=== PATIENT | male | born 1955 | race Caucasian/White ===

== ENCOUNTER 2016-09-07 10:29 | Observation (INO) | payer MEDICARE, OTHER ==
[2016-09-07] MEDS ORDERED: IPRATROPIUM 0.5 MG/2.5 ML NEBU INHALATION STA (10:38)
[2016-09-07] MEDS ORDERED: methylPREDNISolone SOD SUCCI 125 MG/2 ML VIAL IV STA (10:38)
[2016-09-07] MEDS ORDERED: SODIUM CHLORIDE 0.9% 1,000 ML IV STA ×2 (10:38)
[2016-09-07] MEDS ORDERED: ALBUTEROL NEBULIZED 2.5 MG/3 ML INHALATION STA (10:38)
--- NOTE | 2016-09-07 11:04 | ED ---
General Adult HPI - General Chief complaint: Shortness of Breath Stated complaint: TUCKER Time Seen by Provider: 09/07/16 10:32 Source: EMS, RN notes reviewed, old records reviewed Mode of arrival: EMS Limitations: no limitations - History of Present Illness Initial comments: This is a 61 although the ER for evaluation shortness of breath, severe COPD and shortness of breath history of COPD. Patient is no significant recent hospitalizations within the last year. No recent travel history no sick contacts, patient has dementia and is at home with no help. Patient denies fevers but does not feeling well. He has had increasing cough and congestion. Increased sputum production and increasing shortness of breath with exertion. No help in factors at home - Related Data Home Medications Medication Instructions Recorded Confirmed Albuterol Sulfate [Proair Hfa] 1 - 2 puff PO RT-QID PRN 08/18/14 11/03/15 Previous Rx's Medication Instructions Recorded Aspirin EC [Ecotrin] 325 mg PO DAILY tablet. 11/05/15 Carvedilol [Coreg] 6.25 mg PO BID-W/MEALS tab 11/05/15 Losartan [Cozaar] 12.5 mg PO DAILY tab 11/05/15 methylPREDNISolone Dose Pack 4 mg PO DIRECTED #21 package 11/05/15 [Medrol Dose Pack] Allergies Allergy/AdvReac Type Severity Reaction Status Date / Time No Known Allergies Allergy Verified 11/03/15 11:38 Review of Systems ROS Statement: Those systems with pertinent positive or pertinent negative responses have been documented in the HPI. ROS Other: All systems not noted in ROS Statement are negative. Past Medical History Past Medical History: Cancer, COPD, Hypertension, Liver Disease, Myocardial Infarction ([place]), Pneumonia Additional Past Medical History / Comment(s): EMPHYSEMA, BLOOD CLOT in hearth , HYDROCELE Last Myocardial Infarction Date:: UNK History of Any Multi-Drug Resistant Organisms: None Reported Past Surgical History: Adenoidectomy, Heart Catheterization, Hernia Repair, Orthopedic Surgery, Tonsillectomy Additional Past Surgical History / Comment(s): RT INGUINAL HERNIA, CHILD HAD RUPTURED TESTICAL D/T INJURY, LT BROKEN CLAVICAL HAS MEATL IN PLACE,lum Past Anesthesia/Blood Transfusion Reactions: No Reported Reaction Past Psychological History: Anxiety, Depression Additional Psychological History / Comment(s): pt attempted suicide years ago, scare on the left wirst from it. pt state " I have know thoughts of harming myself now. I want to be around to see my grandaughter grow up". Smoking Status: Current every day smoker Past Alcohol Use History: None Reported Additional Past Alcohol Use History / Comment(s): STARTED SMOKING AT AGE 6, SMOKED 1 CARTON IN WEEKS BUT CUT DOWN TO 1 PPD.USED TO BE A HEVY DRINKER, QUIT MORE THAN 10 YEARS AGO. Past Drug Use History: Cocaine Additional Drug Use History / Comment(s): QUIT COCAINE LONG TIME AGO - Past Family History Father Family Medical History: Unable to Obtain Additional Family Medical History / Comment(s): had heart issuse Mother Family Medical History: Cancer Additional Family Medical History / Comment(s): breast CA General Exam Limitations: no limitations General appearance: alert, anxious, in distress, cachectic Head exam: Present: atraumatic, normocephalic, normal inspection Eye exam: Present: normal appearance, PERRL, EOMI. Absent: scleral icterus, conjunctival injection, periorbital swelling ENT exam: Present: mucous membranes dry Neck exam: Present: normal inspection. Absent: tenderness, meningismus, lymphadenopathy Respiratory exam: Present: normal lung sounds bilaterally, wheezes, accessory muscle use. Absent: respiratory distress, rales, rhonchi, stridor Cardiovascular Exam: Present: regular rate, normal rhythm, normal heart sounds. Absent: systolic murmur, diastolic murmur, rubs, gallop, clicks GI/Abdominal exam: Present: soft, normal bowel sounds. Absent: distended, tenderness, guarding, rebound, rigid Extremities exam: Present: normal inspection, full ROM, normal capillary refill. Absent: tenderness, pedal edema, joint swelling, calf tenderness Back exam: Present: normal inspection Neurological exam: Present: alert, oriented X3, CN II-XII intact Psychiatric exam: Present: normal affect, normal mood Skin exam: Present: warm, dry, intact, normal color. Absent: rash Course Vital Signs 09/07/16 09/07/16 09/07/16 10:40 10:46 10:59 Temperature 97.6 F Pulse Rate 71 77 Respiratory 18 18 Rate Blood Pressure 194/91 O2 Sat by Pulse 98 Oximetry 09/07/16 09/07/16 11:25 11:31 Temperature Pulse Rate 85 62 Respiratory 18 Rate Blood Pressure 134/60 O2 Sat by Pulse 97 Oximetry - Reevaluation(s) Reevaluation #1: 09/07/16 11:03 Patient having minimal improvement after breathing treatment, second breathing treatment was given an patient does feel better but still with significant shortness of breath EKG Findings - EKG Comments: EKG Findings:: EKG shows normal sinus at a rate of 69, NE 120, QRS 74, QTC 420` Medical Decision Making - Medical Decision Making 61 male to the ER reevaluation of COPD exacerbation, severe shortness of breath with exertion. Patient will be admitted for continued breathing treatments, steroids and IV resuscitation - Lab Data Result diagrams: 09/07/16 10:43 09/07/16 10:43 Lab Results 09/07/16 09/07/16 09/07/16 Range/Units 10:43 10:43 10:43 WBC 9.8 (3.8-10.6) k/uL RBC 4.89 (4.30-5.90) m/uL Hgb 15.6 (13.0-17.5) gm/dL Hct 46.0 (39.0-53.0) % MCV 94.0 (80.0-100.0) fL MCH 31.8 (25.0-35.0) pg MCHC 33.9 (31.0-37.0) g/dL RDW 12.8 (11.5-15.5) % Plt Count 221 (150-450) k/uL Neutrophils % 75 % Lymphocytes % 13 % Monocytes % 7 % Eosinophils % 3 % Basophils % 1 % Neutrophils # 7.4 (1.3-7.7) k/uL Lymphocytes # 1.3 (1.0-4.8) k/uL Monocytes # 0.7 (0-1.0) k/uL Eosinophils # 0.3 (0-0.7) k/uL Basophils # 0.1 (0-0.2) k/uL PT 10.6 (9.0-12.0) sec INR 1.1 (<1.1) APTT 25.1 (22.0-30.0) sec Sodium 141 (137-145) mmol/L Potassium 4.7 (3.5-5.1) mmol/L Chloride 105 (98-107) mmol/L Carbon Dioxide 26 (22-30) mmol/L Anion Gap 10 mmol/L BUN 19 (9-20) mg/dL Creatinine 0.71 (0.66-1.25) mg/dL Est GFR (MDRD) Af Amer >60 (>60 ml/min/1.73 sqM) Est GFR (MDRD) Non-Af >60 (>60 ml/min/1.73 sqM) Glucose 86 (74-99) mg/dL Calcium 9.3 (8.4-10.2) mg/dL Magnesium 1.9 (1.6-2.3) mg/dL Total Bilirubin 1.4 H (0.2-1.3) mg/dL AST 25 (17-59) U/L ALT 32 (21-72) U/L Alkaline Phosphatase 112 (38-126) U/L Total Protein 7.2 (6.3-8.2) g/dL Albumin 4.1 (3.5-5.0) g/dL - Radiology Data Radiology results: report reviewed (Chest x-ray negative for acute disease), image reviewed Disposition Clinical Impression: Acute exacerbation of chronic obstructive airways disease, Bronchitis, COPD exacerbation Disposition: ADMITTED IP TO THIS HOSP Condition: Fair Referrals: Skyler Evans DO [Primary Care Provider] - 1-2 days
[2016-09-07 11:06] LABS: Basophils # (A) 0.1 k/uL (0-0.2); Basophils % (A) 1 %; CH 31.6; CHCM 33.8; Eosinophils # (A) 0.3 k/uL (0-0.7); Eosinophils % (A) 3 %; HDW 2.45; HGB 15.6 gm/dL (13.0-17.5); Luc # (Auto) 0.15; Luc % (Auto) 2; Lymphocytes # (A) 1.3 k/uL (1.0-4.8); Lymphocytes % (A) 13 %; MCH 31.8 pg (25.0-35.0); MCHC 33.9 g/dL (31.0-37.0); Mean Platelet Volume 8.5; Monocytes # (A) 0.7 k/uL (0-1.0); Monocytes % (A) 7 %; Neutrophils # (A) 7.4 k/uL (1.3-7.7); Neutrophils % (A) 75 %; RBC 4.89 m/uL (4.30-5.90); RDW 12.8 % (11.5-15.5); WBC 9.8 k/uL (3.8-10.6); WBC (Perox) 9.78
[2016-09-07 11:17] LABS: INR 1.1 (<1.1); Partial Thromboplastin Time 25.1 sec (22.0-30.0); Prothrombin Time 10.6 sec (9.0-12.0)
[2016-09-07 11:22] LABS: ALT 32 U/L (21-72); AST 25 U/L (17-59); Alkaline Phosphatase 112 U/L (38-126); Anion Gap 10 mmol/L; Blood Urea Nitrogen 19 mg/dL (9-20); Calcium 9.3 mg/dL (8.4-10.2); Carbon Dioxide 26 mmol/L (22-30); Chloride 105 mmol/L (98-107); Glucose 86 mg/dL (74-99); Magnesium 1.9 mg/dL (1.6-2.3); Non-African American GFR(MDRD) >60 (>60 ml/min/1.73 sqM); Potassium 4.7 mmol/L (3.5-5.1); Sodium 141 mmol/L (137-145); Total Bilirubin 1.4 mg/dL (0.2-1.3); Total Protein 7.2 g/dL (6.3-8.2)
[2016-09-07 11:28] LABS: Creatine Kinase 102 U/L (55-170)
[2016-09-07 11:41] LABS: Creatine Kinase MB 2.1 ng/mL (0.0-2.4); Troponin I <0.012 ng/mL (0.000-0.034)
--- NOTE | 2016-09-07 12:30 | XR ---
EXAMINATION TYPE: XR chest 2V DATE OF EXAM: 09/07/2016 12:23 PM HISTORY: difficulty breathing. REFERENCE: Previous study dated 11/02/2015. FINDINGS: There has been previous surgery involving the left glenoid. The lungs are overinflated. The heart is not enlarged. There is some scarring at the left lung base. Pleural spaces are clear. IMPRESSION: 1. COPD. 2. CHRONIC SCARRING, LEFT LUNG BASE. 3. POSTSURGICAL CHANGE.
[2016-09-07 14:13] VITALS: BMI 18.8
[2016-09-07] MEDS: SODIUM CHLORIDE 0.9% 1,000 ML IV SCH ×2 (14:47→21:21)
[2016-09-07] MEDS ORDERED: DIAZEPAM 5 MG/ML 2 ML SYRINGE IVP PRN (16:57)
[2016-09-07] MEDS: methylPREDNISolone SOD SUCCI 125 MG/2 ML VIAL IV SCH ×2 (17:07→23:56)
[2016-09-07] MEDS: traMADol 50 MG TAB PO SCH ×2 (17:11→21:21)
[2016-09-07] MEDS: IPRATROPIUM-ALBUTEROL 3 ML NEB INHALATION SCH ×2 (17:21→20:47)
[2016-09-07] MEDS ORDERED: CARVEDILOL 12.5 MG TAB PO SCH (17:30)
--- NOTE | 2016-09-07 18:39 | HP ---
DATE OF ADMISSION: Patient is a 61-year-old with known history of COPD, patient complains of shortness of breath. Patient has dementia ( ). Patient lives in a [facility]. Patient is not a reliable historian. Patient has( ). Patient does not have any fever, although patient as mentioned above is not reliable historian. ( ) did not show any significant abnormality. Patient's chest x-ray did not show any lung infiltrate. Patient was treated for COPD with inhalation treatment with systemic steroids. As per the caregiver at the [facility], patient is always short of breath and she believes patient needs to be on oxygen and patient is complaining of pain in the lower rib cage area posteriorly and increased with deep breathing, although patient says it has been going on for 2 days, although patient is complaining of these symptoms for a long time as per the caregiver. Because of ( ) obtained a d-dimer which was positive. Will get CT angio to rule out pulmonary embolism. Home medications include: 1. Albuterol. 2. Aspirin. 3. Coreg. 4. Losartan. 5. Medrol Dosepak. ALLERGIES: No known drug allergies. PAST MEDICAL HISTORY: Significant for COPD, hypertension, myocardial infarction in the past. PAST SURGICAL HISTORY: Adenoidectomy, heart catheterization, hernia repair, orthopedic surgery in the past. Anxiety, depression, patient used to be a smoker. Patient quit smoking, unknown when. Patient used to use cocaine in the past as well. Denied any alcohol history, use to be a heavy alcoholic. FAMILY HISTORY: Unknown at this point in time because of his dementia. Mother had breast cancer. Patient is baseline alert and oriented x2. PHYSICAL EXAMINATION: VITAL SIGNS: Temperature 97.6, pulse of 71, respirations 18, blood pressure 194/91, saturating, at 97% on 3 L of O2 by nasal cannula which has been cut down. GENERAL: The patient is alert and oriented x2 which is baseline. HEENT: Pupils are round and equally reacting to light. EOMI. No scleral icterus. No conjunctival pallor. Normocephalic, atraumatic. No pharyngeal erythema. No thyromegaly. CARDIOVASCULAR: S1 and S2 present. No murmurs, rubs, or gallops. PULMONARY: Minimal expiratory wheezing was appreciated. Fairly good air entry into bilateral lung ryan. No crackles were appreciated. ABDOMEN: Soft, nontender, nondistended, normoactive bowel sounds. No palpable organomegaly. MUSCULOSKELETAL: No joint swelling or deformity. EXTREMITIES: No cyanosis, clubbing, or pedal edema. NEUROLOGICAL: Gross neurological examination did not reveal any focal deficits. SKIN: No rashes. LABORATORY DATA: CBC, CMP essentially within normal limits CT of the chest did not show any significant abnormality. Will obtain a d-dimer. ASSESSMENT AND PLAN: 1. Acute hypercapnic respiratory failure secondary to chronic obstructive pulmonary disease exacerbation. Patient will be ( ) treatment and patient does not have any evidence of significant tracheobronchitis. I started him on ( ) which will continue. ( ). 2. Dementia, uncertain of the etiology of dementia. Patient may have ( ) dementia or chronic alcoholism-related dementia. 3. Coronary artery disease. 4. Hypertension. For the above-mentioned chronic medical problems, I will go ahead and continue his home medications.
[2016-09-07] MEDS ORDERED: NON-FORMULARY DRUG (Carvedilol [Coreg] 25 MG) PO SCH (21:00)
[2016-09-07] MEDS: DOXYCYCLINE 50 MG CAP PO SCH (21:18)
[2016-09-07] MEDS: FAMOTIDINE 20 MG TAB PO SCH (21:18)
[2016-09-07 21:34] LABS: Glucose,Whole Blood 149 mg/dL (75-99)
[2016-09-08] MEDS: methylPREDNISolone SOD SUCCI 125 MG/2 ML VIAL IV SCH (06:12)
[2016-09-08] MEDS: IPRATROPIUM-ALBUTEROL 3 ML NEB INHALATION SCH ×2 (07:08→11:51)
[2016-09-08 07:23] LABS: Glucose,Whole Blood 117 mg/dL (75-99)
[2016-09-08] MEDS: traMADol 50 MG TAB PO SCH (07:34)
[2016-09-08] MEDS: SODIUM CHLORIDE 0.9% 1,000 ML IV SCH (07:38)
[2016-09-08] MEDS: DOXYCYCLINE 50 MG CAP PO SCH (07:39)
[2016-09-08] MEDS: FAMOTIDINE 20 MG TAB PO SCH (07:39)
[2016-09-08 07:44] VITALS: BP 134/75; RESP 20; TEMP 97.3
[2016-09-08 08:02] LABS: CH 31.2; HDW 2.39; HGB 13.7 gm/dL (13.0-17.5); MCH 31.7 pg (25.0-35.0); MCHC 33.4 g/dL (31.0-37.0); MCV 95.1 fL (80.0-100.0); Mean Platelet Volume 8.8; RBC 4.31 m/uL (4.30-5.90); RDW 12.8 % (11.5-15.5); WBC 7.4 k/uL (3.8-10.6)
[2016-09-08 08:35] LABS: Anion Gap 8 mmol/L; Blood Urea Nitrogen 16 mg/dL (9-20); Calcium 8.7 mg/dL (8.4-10.2); Carbon Dioxide 26 mmol/L (22-30); Chloride 103 mmol/L (98-107); Glucose 125 mg/dL (74-99); Non-African American GFR(MDRD) >60 (>60 ml/min/1.73 sqM); Potassium 4.6 mmol/L (3.5-5.1); Sodium 137 mmol/L (137-145)
[2016-09-08] MEDS ORDERED: ENOXAPARIN 40 MG/0.4 ML SYRINGE SQ SCH (09:00)
[2016-09-08] MEDS ORDERED: ASPIRIN 81 MG CHEW PO SCH (09:00)
--- NOTE | 2016-09-08 12:00 | DS ---
PROGRESS NOTE/DISCHARGE SUMMARY: DATE OF ADMISSION: 09/07/2016 DATE OF DISCHARGE: Patient is admitted with COPD exacerbation. Patient does have dementia, appears to be mostly dementia of Alzheimer's type and patient is from a senior care with a caregiver. Patient's lung exam showed clear to auscultation and patient has pretty good air entry into bilateral lung ryan. Will get rid of the oxygen, ambulate today. If patient is clinically doing well, he will be discharged today. Medications were reviewed. PHYSICAL EXAMINATION: VITAL SIGNS: Temperature 97.3, pulse of 68, respiratory rate of 20, blood pressure is 134/75, saturating at 97% on 3 L of O2 by nasal cannula. LUNG EXAMINATION: There is significantly good air entry into bilateral lung ryan, although not normal. No expiratory wheezing was appreciated. No crackles were appreciated. GENERAL: The patient is alert and oriented x3, not in any acute distress. Well developed, well nourished. HEENT: Pupils are round and equally reacting to light. EOMI. No scleral icterus. No conjunctival pallor. Normocephalic, atraumatic. No pharyngeal erythema. No thyromegaly. CARDIOVASCULAR: S1 and S2 present. No murmurs, rubs, or gallops. ABDOMEN: Soft, nontender, nondistended, normoactive bowel sounds. No palpable organomegaly. MUSCULOSKELETAL: No joint swelling or deformity. EXTREMITIES: No cyanosis, clubbing, or pedal edema. NEUROLOGICAL: Gross neurological examination did not reveal any focal deficits. SKIN: No rashes. LABORATORY DATA: CBC and CMP essentially within normal limits. ASSESSMENT AND PLAN: 1. Acute hypercapnic respiratory failure secondary to chronic obstructive pulmonary disease exacerbation. I did a d-dimer which is negative because of the pain in the lower rib cage area, which has been going on for long time. I believe it is musculoskeletal. My suspicion is low for urinary tract infection. Patient will be discharged on pain medications that is tramadol for that. 2. Dementia, etiology is unknown to me, probably dementia of Alzheimer's type. 3. Hypertension. 4. Coronary artery disease. Patient will be discharge today if patient is saturating well upon ambulation without oxygen. Please refer to my depart summary for the list of discharge medication. Patient will follow with Dr. Skyler Evans. DISCHARGE DIET: Cardiac. Activity as tolerated. Spent greater than 35 minutes in total discharge process.
[2016-09-08 12:02] VITALS: PULSE 72
== END 2016-09-08 13:15 | disposition home or self-care (01) ==
LOC: EC 10:29 → 5MS5E 11:05
PROVIDERS: ADMIT Hospitalist; ATTEND Hospitalist
DX: J44.1 Chronic obstructive pulmonary disease with (acute) exacerbation (principal); J96.02 Acute respiratory failure with hypercapnia; F03.90 Unspecified dementia, unspecified severity, without behavioral disturbance, psychotic disturbance, mood disturbance, and anxiety; I10 Essential (primary) hypertension; I25.10 Atherosclerotic heart disease of native coronary artery without angina pectoris; R07.81 Pleurodynia; I25.2 Old myocardial infarction; F17.200 Nicotine dependence, unspecified, uncomplicated; Z79.82 Long term (current) use of aspirin; Z79.899 Other long term (current) drug therapy; Z79.52 Long term (current) use of systemic steroids
CPT/HCPCS: 96374; 96361; 99285; 36415; 94640 ×4; 93005; 85379; 83880; 80053; 80048; 83036; 82550; 82553; 83735; 84484; 85025; 85027; 85610; 85730; 71020; G0378 ×2; J2930 ×2; J1650; 96372; 96376

== ENCOUNTER 2017-01-24 15:46 | Emergency (ER) | payer MEDICARE, OTHER ==
[2017-01-24 15:59] VITALS: TEMP 97.6
[2017-01-24 16:49] LABS: Appearance,Urine Clear (Clear); Bilirubin,Urine Negative (Negative); Glucose,Urine (UA) Negative (Negative); Ketones,Urine Negative (Negative); Leukocyte Esterase,Urine Negative (Negative); Nitrite,Urine Negative (Negative); PH, Urine 5.5 (5.0-8.0); Protein,Urine Negative (Negative); Specific Gravity,Urine 1.013 (1.001-1.035); UA Billing (MACRO vs. MICRO) CHEM; Urobilinogen,Urine <2.0 mg/dL (<2.0)
--- NOTE | 2017-01-24 17:10 | ED ---
Male Urogenital HPI - General Chief complaint: Urogenital Stated complaint: unable to urinate Time Seen by Provider: 01/24/17 16:02 Source: patient, RN notes reviewed Mode of arrival: wheelchair Limitations: no limitations - History of Present Illness Initial comments: This a 61-year-old male presents emergency Department chief complaint of unable to urinate. Patient states she's had Leos catheter past secondary to his problem. Patient states he feels ileus ago and cannot remember last 21. Patient denies fever, chills. Patient states he has urgency to go and some lower abdominal pressure. Patient denies any recent diarrhea or constipation. Patient denies any chest pain, increased shortness of breath. He states he always has shortness of breath and some worsen usual. Patient was questioned again about this as it was in the stated complaint from registration though he states that he is having no problems. - Related Data Home Medications Medication Instructions Recorded Confirmed Aspirin EC [Ecotrin Low Dose] 81 mg PO DAILY 09/07/16 01/24/17 Carvedilol [Coreg] 25 mg PO BID 09/07/16 01/24/17 Ipratropium-Albuterol Nebulize 3 ml INHALATION RT-Q6H PRN 01/24/17 01/24/17 [Duoneb 0.5 mg-3 mg/3 ml Soln] Allergies Allergy/AdvReac Type Severity Reaction Status Date / Time No Known Allergies Allergy Verified 01/24/17 16:53 Review of Systems ROS Statement: Those systems with pertinent positive or pertinent negative responses have been documented in the HPI. ROS Other: All systems not noted in ROS Statement are negative. Past Medical History Past Medical History: COPD, Hypertension, Liver Disease, Myocardial Infarction ( [place]), Pneumonia Additional Past Medical History / Comment(s): EMPHYSEMA, BLOOD CLOT in hearth , HYDROCELE Last Myocardial Infarction Date:: UNK History of Any Multi-Drug Resistant Organisms: None Reported Past Surgical History: Adenoidectomy, Heart Catheterization, Hernia Repair, Orthopedic Surgery, Tonsillectomy Additional Past Surgical History / Comment(s): RT INGUINAL HERNIA, CHILD HAD RUPTURED TESTICAL D/T INJURY, LT BROKEN CLAVICAL HAS MEATL IN PLACE,lum Past Anesthesia/Blood Transfusion Reactions: No Reported Reaction Past Psychological History: Anxiety, Depression Smoking Status: Former smoker Past Alcohol Use History: None Reported Past Drug Use History: None Reported - Past Family History Father Family Medical History: Unable to Obtain Additional Family Medical History / Comment(s): had heart issuse Mother Family Medical History: Cancer Additional Family Medical History / Comment(s): breast CA General Exam Limitations: no limitations General appearance: alert, in no apparent distress Head exam: Present: atraumatic, normocephalic, normal inspection Neck exam: Present: normal inspection. Absent: tenderness, meningismus, lymphadenopathy Respiratory exam: Present: normal lung sounds bilaterally. Absent: respiratory distress, wheezes, rales, rhonchi, stridor Cardiovascular Exam: Present: regular rate, normal rhythm, normal heart sounds. Absent: systolic murmur, diastolic murmur, rubs, gallop, clicks GI/Abdominal exam: Present: soft, tenderness (Suprapubic), normal bowel sounds. Absent: distended, guarding, rebound, rigid Course Vital Signs 01/24/17 15:53 Temperature 97.6 F Pulse Rate 77 Respiratory 22 Rate Blood Pressure 177/92 O2 Sat by Pulse 94 L Oximetry Medical Decision Making - Medical Decision Making 61-year-old male presented for urinary retention. Patient did have a Leos catheter placed in a leg bag. Patient had over 800 mL. Patient states he feels improved patient be discharged with Leos catheter and follow-up with urology. - Lab Data Lab Results 01/24/17 Range/Units 16:34 Urine Color Yellow Urine Appearance Clear (Clear) Urine pH 5.5 (5.0-8.0) Ur Specific Maurice 1.013 (1.001-1.035) Urine Protein Negative (Negative) Urine Glucose (UA) Negative (Negative) Urine Ketones Negative (Negative) Urine Blood Negative (Negative) Urine Nitrite Negative (Negative) Urine Bilirubin Negative (Negative) Urine Urobilinogen <2.0 (<2.0) mg/dL Ur Leukocyte Esterase Negative (Negative) Disposition Clinical Impression: Urinary retention Disposition: HOME SELF-CARE Condition: Stable Instructions: Urinary Retention in Men (ED) Additional Instructions: Please return to the Emergency Department if symptoms worsen or any other concerns. Referrals: Giovanny Negron MD [Primary Care Provider] - 1-2 days Eduardo Patel MD [STAFF PHYSICIAN] - 1-2 days Time of Disposition: 17:10
[2017-01-24 17:28] VITALS: BP 164/100; PULSE 79; RESP 16
== END 2017-01-24 17:29 | disposition home or self-care (01) ==
LOC: EC 15:46
DX: R33.9 Retention of urine, unspecified (principal); I10 Essential (primary) hypertension; I25.2 Old myocardial infarction; Z95.5 Presence of coronary angioplasty implant and graft; Z79.02 Long term (current) use of antithrombotics/antiplatelets; Z79.82 Long term (current) use of aspirin; Z87.891 Personal history of nicotine dependence
CPT/HCPCS: 51702; 81003; 87086; 99283

== ENCOUNTER 2017-01-29 16:30 | Inpatient (IN) | payer MEDICARE, OTHER ==
[2017-01-29] MEDS ORDERED: LORazepam 2 MG/ML SYRINGE IV STA (16:39)
[2017-01-29] MEDS ORDERED: ALBUTEROL NEBULIZED 7.5 MG, IPRATROPIUM NEBULIZED 0.5 MG, SODIUM CHLORIDE 0.9% NEBULIZ ... INHALATION ONE ×3 (16:39)
--- NOTE | 2017-01-29 16:43 | ED ---
General Adult HPI - General Chief complaint: Shortness of Breath Stated complaint: TUCKER X 2 DAYS Time Seen by Provider: 01/29/17 16:30 Source: patient, EMS, RN notes reviewed Mode of arrival: EMS Limitations: no limitations - History of Present Illness Initial comments: This is a 61-year-old male comes into the emergency department with a past medical history significant for hypertension and [place] as well as COPD. Patient states he started difficulty breathing last couple days with cough and positive sputum production. Patient denies any fever chills. Patient denies any chest pain. Patient denies any palpitation. Patient denies abdominal pain patient denies nausea vomiting diarrhea. Patient states he stated he continues but hasn 't helped much. Patient denies any lightheadedness dizziness or near syncopal episode. Patient came to the hospital via EMS where he got Solu-Medrol as well as breathing treatment on the way in. Patient denies any swelling to his legs or calf pain. - Related Data Home Medications Medication Instructions Recorded Confirmed Carvedilol [Coreg] 25 mg PO BID 09/07/16 01/29/17 Allergies Allergy/AdvReac Type Severity Reaction Status Date / Time No Known Allergies Allergy Verified 01/29/17 17:16 Review of Systems ROS Statement: Those systems with pertinent positive or pertinent negative responses have been documented in the HPI. ROS Other: All systems not noted in ROS Statement are negative. Past Medical History Past Medical History: COPD, Hypertension, Liver Disease, Myocardial Infarction ( [place]), Pneumonia Additional Past Medical History / Comment(s): EMPHYSEMA, BLOOD CLOT in hearth , HYDROCELE Last Myocardial Infarction Date:: UNK History of Any Multi-Drug Resistant Organisms: None Reported Past Surgical History: Adenoidectomy, Heart Catheterization, Hernia Repair, Orthopedic Surgery, Tonsillectomy Additional Past Surgical History / Comment(s): RT INGUINAL HERNIA, CHILD HAD RUPTURED TESTICAL D/T INJURY, LT BROKEN CLAVICAL HAS MEATL IN PLACE,lum Past Anesthesia/Blood Transfusion Reactions: No Reported Reaction Past Psychological History: Anxiety, Depression Smoking Status: Former smoker Past Alcohol Use History: Occasional Past Drug Use History: None Reported - Past Family History Father Family Medical History: Unable to Obtain Additional Family Medical History / Comment(s): had heart issuse Mother Family Medical History: Cancer Additional Family Medical History / Comment(s): breast CA General Exam - General Exam Comments Initial Comments: GENERAL: Patient is well-developed and well-nourished. Patient is nontoxic and well- hydrated and is in moderate distress. ENT: Neck is soft and supple. No significant lymphadenopathy is noted. Oropharynx is clear. Moist mucous membranes. Neck has full range of motion without eliciting any pain. EYES: The sclera were anicteric and conjunctiva were pink and moist. Extraocular movements were intact and pupils were equal round and reactive to light. Eyelids were unremarkable. PULMONARY: Diminished breath sounds throughout CARDIOVASCULAR: There is a regular rate and rhythm without any murmurs gallops or rubs. Femoral pulses are equal bilaterally ABDOMEN: Soft and nontender with normal bowel sounds. No palpable organomegaly was noted. There is no palpable pulsatile mass. SKIN: Skin is clear with no lesions or rashes and otherwise unremarkable. NEUROLOGIC: Patient is alert and oriented x3. Cranial nerves II through XII are grossly intact. Motor and sensory are also intact. Normal speech, volume and content. Symmetrical smile. MUSCULOSKELETAL: Normal extremities with adequate strength and full range of motion. No lower extremity swelling or edema. No calf tenderness. LYMPHATICS: No significant lymphadenopathy is noted PSYCHIATRIC: Normal psychiatric evaluation. Limitations: no limitations Course Vital Signs 01/29/17 01/29/17 01/29/17 16:31 16:49 16:53 Temperature 98.0 F Pulse Rate 82 80 72 Respiratory 25 H 25 H 22 Rate Blood Pressure 224/108 185/88 169/78 O2 Sat by Pulse 99 99 99 Oximetry 01/29/17 01/29/17 01/29/17 17:15 17:36 17:40 Temperature Pulse Rate 62 61 66 Respiratory 22 Rate Blood Pressure 167/91 O2 Sat by Pulse 100 Oximetry 01/29/17 18:03 Temperature Pulse Rate 64 Respiratory Rate Blood Pressure O2 Sat by Pulse Oximetry Medical Decision Making - Medical Decision Making EKG shows normal sinus rhythm at 75 bpm PA interval 224 QRS is 80 QT interval 370 QTC is 422. Patient's EKG shows no ST segment elevation or depression or T- wave abdomen is noted. Chest x-ray shows no acute abnormality. Patient is on BiPAP and received a continuous treatment of 7.5 mg with Atrovent. After the patient was done with the treatment I listened to the patient's lungs they were being irrigated much better but he still has some expiratory wheezing. Spoke with Dr. Navarro he agreed to admit the patient admitted the patient I wrote admit orders to continue the Solu-Medrol as well as albuterol the floor. Patient remained on BiPAP when he went to the floor. - Lab Data Result diagrams: 01/29/17 16:43 01/29/17 16:43 Lab Results 01/29/17 01/29/17 01/29/17 Range/Units 16:43 16:43 16:43 WBC 7.1 (3.8-10.6) k/uL RBC 4.97 (4.30-5.90) m/uL Hgb 15.7 (13.0-17.5) gm/dL Hct 46.4 (39.0-53.0) % MCV 93.3 (80.0-100.0) fL MCH 31.7 (25.0-35.0) pg MCHC 33.9 (31.0-37.0) g/dL RDW 12.8 (11.5-15.5) % Plt Count 251 (150-450) k/uL Neutrophils % 56 % Lymphocytes % 25 % Monocytes % 8 % Eosinophils % 8 % Basophils % 1 % Neutrophils # 3.9 (1.3-7.7) k/uL Lymphocytes # 1.7 (1.0-4.8) k/uL Monocytes # 0.5 (0-1.0) k/uL Eosinophils # 0.6 (0-0.7) k/uL Basophils # 0.1 (0-0.2) k/uL PT (9.0-12.0) sec INR (<1.2) APTT (22.0-30.0) sec Sodium 138 (137-145) mmol/L Potassium 5.4 H (3.5-5.1) mmol/L Chloride 103 (98-107) mmol/L Carbon Dioxide 26 (22-30) mmol/L Anion Gap 9 mmol/L BUN 16 (9-20) mg/dL Creatinine 0.68 (0.66-1.25) mg/dL Est GFR (MDRD) Af Amer >60 (>60 ml/min/1.73 sqM) Est GFR (MDRD) Non-Af >60 (>60 ml/min/1.73 sqM) Glucose 83 (74-99) mg/dL Plasma Lactic Acid [place] (0.7-2.0) mmol/L Calcium 9.1 (8.4-10.2) mg/dL Magnesium 1.9 (1.6-2.3) mg/dL Total Bilirubin 1.2 (0.2-1.3) mg/dL AST 37 (17-59) U/L ALT 29 (21-72) U/L Alkaline Phosphatase 114 (38-126) U/L Total Creatine Kinase 75 (55-170) U/L CK-MB (CK-2) 1.0 (0.0-2.4) ng/mL CK-MB (CK-2) Rel Index 1.3 Troponin I <0.012 (0.000-0.034) ng/mL Total Protein 7.6 (6.3-8.2) g/dL Albumin 4.3 (3.5-5.0) g/dL Urine Color Urine Appearance (Clear) Urine pH (5.0-8.0) Ur Specific [place] (1.001-1.035) Urine Protein (Negative) Urine Glucose (UA) (Negative) Urine Ketones (Negative) Urine Blood (Negative) Urine Nitrite (Negative) Urine Bilirubin (Negative) Urine Urobilinogen (<2.0) mg/dL Ur Leukocyte Esterase (Negative) Urine RBC (0-5) /hpf Urine WBC (0-5) /hpf Urine Mucus (None) /hpf 01/29/17 01/29/17 01/29/17 Range/Units 16:43 16:43 17:13 WBC (3.8-10.6) k/uL RBC (4.30-5.90) m/uL Hgb (13.0-17.5) gm/dL Hct (39.0-53.0) % MCV (80.0-100.0) fL MCH (25.0-35.0) pg MCHC (31.0-37.0) g/dL RDW (11.5-15.5) % Plt Count (150-450) k/uL Neutrophils % % Lymphocytes % % Monocytes % % Eosinophils % % Basophils % % Neutrophils # (1.3-7.7) k/uL Lymphocytes # (1.0-4.8) k/uL Monocytes # (0-1.0) k/uL Eosinophils # (0-0.7) k/uL Basophils # (0-0.2) k/uL PT 10.9 (9.0-12.0) sec INR 1.1 (<1.2) APTT 26.0 (22.0-30.0) sec Sodium (137-145) mmol/L Potassium (3.5-5.1) mmol/L Chloride (98-107) mmol/L Carbon Dioxide (22-30) mmol/L Anion Gap mmol/L BUN (9-20) mg/dL Creatinine (0.66-1.25) mg/dL Est GFR (MDRD) Af Amer (>60 ml/min/1.73 sqM) Est GFR (MDRD) Non-Af (>60 ml/min/1.73 sqM) Glucose (74-99) mg/dL Plasma Lactic Acid [place] 0.9 (0.7-2.0) mmol/L Calcium (8.4-10.2) mg/dL Magnesium (1.6-2.3) mg/dL Total Bilirubin (0.2-1.3) mg/dL AST (17-59) U/L ALT (21-72) U/L Alkaline Phosphatase (38-126) U/L Total Creatine Kinase (55-170) U/L CK-MB (CK-2) (0.0-2.4) ng/mL CK-MB (CK-2) Rel Index Troponin I (0.000-0.034) ng/mL Total Protein (6.3-8.2) g/dL Albumin (3.5-5.0) g/dL Urine Color Yellow Urine Appearance Clear (Clear) Urine pH 5.5 (5.0-8.0) Ur Specific [place] 1.007 (1.001-1.035) Urine Protein Negative (Negative) Urine Glucose (UA) Negative (Negative) Urine Ketones Negative (Negative) Urine Blood Small H (Negative) Urine Nitrite Negative (Negative) Urine Bilirubin Negative (Negative) Urine Urobilinogen <2.0 (<2.0) mg/dL Ur Leukocyte Esterase Negative (Negative) Urine RBC 9 H (0-5) /hpf Urine WBC 1 (0-5) /hpf Urine Mucus Rare H (None) /hpf Disposition Clinical Impression: COPD with acute exacerbation Disposition: ADMITTED IP TO THIS HOSP Referrals: Lauryn Schreiber MD [Primary Care Provider] - 1-2 days Time of Disposition: 18:08
[2017-01-29 17:03] LABS: Basophils # (A) 0.1 k/uL (0-0.2); Basophils % (A) 1 %; CH 31.2; CHCM 33.5; Eosinophils # (A) 0.6 k/uL (0-0.7); Eosinophils % (A) 8 %; HCT 46.4 % (39.0-53.0); HDW 2.47; HGB 15.7 gm/dL (13.0-17.5); Luc # (Auto) 0.22; Luc % (Auto) 3; Lymphocytes # (A) 1.7 k/uL (1.0-4.8); Lymphocytes % (A) 25 %; MCH 31.7 pg (25.0-35.0); MCHC 33.9 g/dL (31.0-37.0); MCV 93.3 fL (80.0-100.0); Mean Platelet Volume 8.1; Monocytes # (A) 0.5 k/uL (0-1.0); Monocytes % (A) 8 %; Neutrophils # (A) 3.9 k/uL (1.3-7.7); Neutrophils % (A) 56 %; RBC 4.97 m/uL (4.30-5.90); RDW 12.8 % (11.5-15.5); WBC 7.1 k/uL (3.8-10.6); WBC (Perox) 7.28
--- NOTE | 2017-01-29 17:07 | XR ---
EXAMINATION TYPE: XR chest 2V DATE OF EXAM: 01/29/2017 COMPARISON: Prior chest x-ray 09/07/2016 HISTORY: Difficulty breathing, shortness of breath TECHNIQUE: Frontal and lateral views of the chest are obtained. FINDINGS: There is no focal air space opacity, pleural effusion, or pneumothorax seen. The cardiac silhouette size is within normal limits. Prominent lung volumes are compatible with COPD. There are overlying cardiac leads. Areas of probable scarring, interstitial prominence are again noted. Postop change noted to the left scapula. The osseous structures are intact. IMPRESSION: No acute cardiopulmonary process.
[2017-01-29 17:09] LABS: ALT 29 U/L (21-72); AST 37 U/L (17-59); Alkaline Phosphatase 114 U/L (38-126); Anion Gap 9 mmol/L; Blood Urea Nitrogen 16 mg/dL (9-20); Calcium 9.1 mg/dL (8.4-10.2); Carbon Dioxide 26 mmol/L (22-30); Chloride 103 mmol/L (98-107); Glucose 83 mg/dL (74-99); Magnesium 1.9 mg/dL (1.6-2.3); Non-African American GFR(MDRD) >60 (>60 ml/min/1.73 sqM); Sodium 138 mmol/L (137-145); Total Bilirubin 1.2 mg/dL (0.2-1.3); Total Protein 7.6 g/dL (6.3-8.2)
[2017-01-29 17:10] LABS: INR 1.1 (<1.2); Prothrombin Time 10.9 sec (9.0-12.0)
[2017-01-29 17:16] LABS: Potassium 5.4 mmol/L (3.5-5.1)
[2017-01-29 17:24] LABS: Creatine Kinase 75 U/L (55-170)
[2017-01-29 17:37] LABS: Troponin I <0.012 ng/mL (0.000-0.034)
[2017-01-29 17:40] LABS: Appearance,Urine Clear (Clear); Bilirubin,Urine Negative (Negative); Glucose,Urine (UA) Negative (Negative); Ketones,Urine Negative (Negative); Leukocyte Esterase,Urine Negative (Negative); Mucus,Urine Rare /hpf; Nitrite,Urine Negative (Negative); PH, Urine 5.5 (5.0-8.0); Particle Count 1142; Protein,Urine Negative (Negative); RBC,Urine 9 /hpf (0-5); Specific Gravity,Urine 1.007 (1.001-1.035); UA Billing (MACRO vs. MICRO) MICRO; Urobilinogen,Urine <2.0 mg/dL (<2.0); WBC,Urine 1 /hpf (0-5)
[2017-01-29] MEDS ORDERED: IPRATROPIUM-ALBUTEROL 3 ML NEB INHALATION PRN (18:09)
[2017-01-29] MEDS: BUDESONIDE 1 MG/2 ML NEBU INHALATION SCH (20:40)
[2017-01-29] MEDS: IPRATROPIUM 0.5 MG/2.5 ML NEBU INHALATION SCH (20:40)
[2017-01-29] MEDS: LEVALBUTEROL NEB (CONC) 1.25 MG/0.5 ML AMP INHALATION SCH (20:40)
[2017-01-29] MEDS: FORMOTEROL FUMARATE 20 MCG/2 ML NEBU INHALATION SCH (20:40)
[2017-01-29 20:51] LABS: Glucose,Whole Blood 113 mg/dL (75-99)
[2017-01-29] MEDS: INSULIN LISPRO (humaLOG) 300 UNIT/3 ML VIAL SQ SCH (21:34)
[2017-01-29] MEDS: CARVEDILOL 12.5 MG TAB PO SCH (21:39)
[2017-01-29] MEDS: methylPREDNISolone SOD SUCCI 125 MG/2 ML VIAL IV SCH (21:39)
[2017-01-29] MEDS: HEPARIN SODIUM,PORCINE 5,000 UNIT/ML 1 ML VIAL SQ SCH (21:40)
[2017-01-29 22:34] LABS: Hemoglobin A1C 5.1 % (4.2-6.1)
[2017-01-30] MEDS ORDERED: methylPREDNISolone SOD SUCCI 125 MG/2 ML VIAL IV SCH
[2017-01-30] MEDS: methylPREDNISolone SOD SUCCI 125 MG/2 ML VIAL IV SCH ×5 (01:15→22:55)
[2017-01-30] MEDS: ALPRAZolam 0.25 MG TAB PO PRN ×2 (03:53→21:53)
[2017-01-30 06:04] LABS: Glucose,Whole Blood 138 mg/dL (75-99)
[2017-01-30] MEDS: CARVEDILOL 12.5 MG TAB PO SCH ×2 (06:18→18:07)
[2017-01-30] MEDS: INSULIN LISPRO (humaLOG) 300 UNIT/3 ML VIAL SQ SCH ×4 (06:19→21:42)
[2017-01-30 06:57] LABS: Basophils % (A) 0 %; CH 31.6; CHCM 33.3; Eosinophils % (A) 0 %; HCT 43.8 % (39.0-53.0); HDW 2.43; HGB 14.4 gm/dL (13.0-17.5); Luc # (Auto) 0.02; Luc % (Auto) 0; Lymphocytes # (A) 0.8 k/uL (1.0-4.8); Lymphocytes % (A) 10 %; MCH 31.3 pg (25.0-35.0); MCHC 32.9 g/dL (31.0-37.0); MCV 95.2 fL (80.0-100.0); Mean Platelet Volume 8.1; Monocytes # (A) 0.1 k/uL (0-1.0); Monocytes % (A) 1 %; Neutrophils # (A) 7.2 k/uL (1.3-7.7); Neutrophils % (A) 89 %; RBC 4.59 m/uL (4.30-5.90); RDW 13.3 % (11.5-15.5); WBC 8.1 k/uL (3.8-10.6); WBC (Perox) 7.78
[2017-01-30 07:25] LABS: Anion Gap 9 mmol/L; Blood Urea Nitrogen 17 mg/dL (9-20); Carbon Dioxide 25 mmol/L (22-30); Chloride 101 mmol/L (98-107); Glucose 130 mg/dL (74-99); Non-African American GFR(MDRD) >60 (>60 ml/min/1.73 sqM); Potassium 4.5 mmol/L (3.5-5.1); Sodium 135 mmol/L (137-145)
[2017-01-30] MEDS: HEPARIN SODIUM,PORCINE 5,000 UNIT/ML 1 ML VIAL SQ SCH ×2 (08:25→21:47)
[2017-01-30] MEDS: LEVALBUTEROL NEB (CONC) 1.25 MG/0.5 ML AMP INHALATION SCH ×3 (08:32→20:49)
[2017-01-30] MEDS: IPRATROPIUM 0.5 MG/2.5 ML NEBU INHALATION SCH ×3 (08:32→20:48)
[2017-01-30] MEDS: BUDESONIDE 1 MG/2 ML NEBU INHALATION SCH ×2 (08:33→20:48)
--- NOTE | 2017-01-30 08:34 | HP ---
CHIEF COMPLAINTS: Shortness of breath. HISTORY OF PRESENT ILLNESS: This 61-year-old gentleman with past medical history of chronic obstructive pulmonary disease, hypertension, history of liver disease, history of myocardial infarction, being followed [facility] as outpatient has not been feeling well over the past several days. The patient had increasing shortness of breath, cough and sputum. Patient came to [facility] and was admitted for further evaluation and treatment. Patient is extremely short of breath. BiPAP being initiated at this time because of acute hypoxic respiratory failure. There is no history of fever, rigors or chills at this time. PAST MEDICAL HISTORY: History of chronic obstructive pulmonary disease, hypertension, history of liver disease, history of myocardial infarction, history of pneumonia. Medications prior to admission include: Coreg 25 mg bid ALLERGIES: None. FAMILY HISTORY: Heart problems in the family. No history of strokes. SOCIAL HISTORY: Previous history of smoking. No history of current smoking or alcohol. REVIEW OF SYSTEMS: ENT: No diminished hearing or vision. CARDIOVASCULAR: As mentioned earlier. RESPIRATORY: As mentioned earlier. GI: As mentioned. : No dysuria. NERVOUS SYSTEM: No numbness or weakness. ALLERGY/IMMUNOLOGY: No asthma or hayfever. MUSCULOSKELETAL: As mentioned earlier. HEMATOLOGY/ONCOLOGY: No history of anemia. ENDOCRINE: No history of diabetes. CONSTITUTIONAL: As mentioned earlier. DERMATOLOGY: Negative. RHEUMATOLOGY: Negative. PSYCHIATRY: As mentioned earlier. PHYSICAL EXAMINATION: The patient is alert and oriented x3. Pulse is 72, blood pressure 116/72, respirations 22, temperature normal, pulse ox 99% on 15% nonrebreather. HEENT: Conjunctivae normal. Oral mucosa moist. NECK: No jugular venous distention. No carotid bruit. No lymph node enlargement. Respiratory efforts are markedly increased. CARDIOVASCULAR: S1, S2. No S3 or S4. RESPIRATORY: Breath sounds diminished at the bases. Chest emphysematous. Bilateral scattered rhonchi and expiratory wheezing. Crackles were heard. ABDOMEN: Soft, nontender, no mass palpable. LEGS: No edema, no swelling. NERVOUS SYSTEM: Higher function as mentioned. Moves all four limbs. No focal motor sensory deficits. LYMPHATICS: No lymphadenopathy in the neck, axillae or groin. SKIN: No rash, ulcer or bleeding. Labs at this time show CBC within normal limits. Potassium 5.4. The chest x-ray noted. ASSESSMENT: 1. Chronic obstructive pulmonary disease acute exacerbation with acute tracheobronchitis with acute hypoxic respiratory failure on BiPAP. 2. History of hypertension. 3. History of liver disease. 4. History of myocardial infarction. 5. History of chronic obstructive pulmonary disease. 6. History of anxiety and depression, not otherwise specified. 7. Remote history of nicotine dependence and cocaine. RECOMMENDATIONS AND DISCUSSION: In this 61-year-old gentleman who presented with multiple complex medical issues we well monitor the patient closely. Continue the current medications. Continue symptomatic treatment. Otherwise continue with bronchodilators, continue with steroids, continue with the rest of the medications. Guarded prognosis because of multiple complex medical issues. Further recommendations to follow. Will also get Pulmonary consultation. Patient is followed by in outpatient setting. JAME
[2017-01-30] MEDS: FORMOTEROL FUMARATE 20 MCG/2 ML NEBU INHALATION SCH ×2 (08:48→21:05)
[2017-01-30 11:53] LABS: Glucose,Whole Blood 110 mg/dL (75-99)
--- NOTE | 2017-01-30 14:43 | P.CNPUL ---
History of Present Illness Consult date: 01/30/17 Reason for consult: COPD History of present illness: A 61-year-old male patient, known history of advanced COPD, quit smoking few years back, also known to have coronary artery disease, presenting to the hospital because of worsening shortness of breath. Denied having any chest pain. Some cough and congestion and was quite anxious at time of arrival. No fever. No chills. No night sweats. No hemoptysis. Chest x-ray showing hyperinflation with no acute cardio pulmonary process. The patient was initially placed on a BiPAP at a pressure of 10/5 cm of water with an FiO2 of 40 %. This morning he is off the BiPAP. Able to speak in full sentences. Breath sounds remain quite diminished. He was started on a combination of bronchodilators and systemic steroids. No swelling in the lower extremities. No calf pain or tenderness. No aspiration. Patient lives with a significant other. Does not use oxygen at home. Uses only intermittently last treatment [id number]. Does not seem to be on any form of maintenance inhalers for COPD. 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 Review of Systems Constitutional: Reports fatigue, Reports weakness Eyes: denies blurred vision, denies bulging eye, denies decreased vision Ears: deny: decreased hearing, ear discharge Ears, nose, mouth and throat: Denies headache, Denies sore throat Cardiovascular: Reports decreased exercise tolerance, Reports dyspnea on exertion, Reports shortness of breath Respiratory: Reports cough, Reports dyspnea Gastrointestinal: Denies abdominal pain, Denies diarrhea, Denies nausea, Denies vomiting Musculoskeletal: Denies myalgias Musculoskeletal: absent: ankle pain, ankle stiffness, ankle swelling Integumentary: Denies pruritus, Denies rash Neurological: Denies numbness, Denies weakness Endocrine: Denies fatigue, Denies weight change Past Medical History Past Medical History: COPD, CVA/TIA, Hypertension, Liver Disease, Myocardial Infarction ([place]), Pneumonia Additional Past Medical History / Comment(s): COPD, hypertension, coronary artery disease patient has had a cardiac catheterization 2010 revealing right dominant system with a 50% circumflex stenosis, 50% RCA stenosis, minimal disease in the left main and LAD. Echocardiogram has shown a preserved LV function from 2016 and the patient has a ejection fraction of 55-60%., generalized anxiety disorder, depression, hydrocele, childhood testicular injury , broken clavicle, Last Myocardial Infarction Date:: UNK History of Any Multi-Drug Resistant Organisms: None Reported Past Surgical History: Adenoidectomy, Heart Catheterization, Hernia Repair, Orthopedic Surgery, Tonsillectomy Additional Past Surgical History / Comment(s): RT INGUINAL HERNIA, ORIF of a left clavicular fracture Past Anesthesia/Blood Transfusion Reactions: No Reported Reaction Past Psychological History: Anxiety, Depression Additional Psychological History / Comment(s): pt attempted suicide years ago, scar on the left wirst from it. pt state " I have know thoughts of harming myself now. I want to be around to see my grandaughter grow up". Smoking Status: Former smoker Past Alcohol Use History: Occasional Additional Past Alcohol Use History / Comment(s): STARTED SMOKING AT AGE 6, SMOKED 1 CARTON IN WEEKS BUT CUT DOWN TO 1 PPD.USED TO BE A HEVY DRINKER, QUIT MORE THAN 10 YEARS AGO. Past Drug Use History: None Reported Additional Drug Use History / Comment(s): QUIT COCAINE LONG TIME AGO - Past Family History Father Family Medical History: Unable to Obtain Additional Family Medical History / Comment(s): had heart issuse Mother Family Medical History: Cancer Additional Family Medical History / Comment(s): breast CA Medications and Allergies Home Medications Medication Instructions Recorded Confirmed Type Carvedilol [Coreg] 25 mg PO BID 09/07/16 01/29/17 History Allergies Allergy/AdvReac Type Severity Reaction Status Date / Time No Known Allergies Allergy Verified 01/29/17 17:16 Physical Exam Vitals: Vital Signs Temp Pulse Pulse Resp BP BP BP 01/30/17 13:54 73 16 01/30/17 13:44 73 16 01/30/17 09:01 88 18 01/30/17 08:37 88 18 01/30/17 08:00 97.1 F L 81 139/79 01/30/17 06:17 68 140/83 01/30/17 04:00 97.3 F L 76 18 146/77 01/30/17 00:00 97 F L 67 18 130/69 01/29/17 21:37 71 18 135/76 01/29/17 21:02 62 01/29/17 20:53 62 01/29/17 20:52 60 01/29/17 20:43 60 01/29/17 19:45 98.0 F 07/27/17 19:44 52 L 12 144/70 01/29/17 19:06 97 F L 62 18 162/83 01/29/17 18:09 60 12 135/82 01/29/17 18:03 64 01/29/17 17:54 62 12 156/89 01/29/17 17:40 66 22 167/91 01/29/17 17:36 61 01/29/17 17:15 62 01/29/17 16:53 72 22 169/78 01/29/17 16:49 80 25 H 185/88 01/29/17 16:31 98.0 F 82 25 H 224/108 Pulse Ox 01/30/17 13:54 01/30/17 13:44 01/30/17 09:01 01/30/17 08:37 95 01/30/17 08:00 97 01/30/17 06:17 01/30/17 04:00 95 01/30/17 00:00 98 01/29/17 21:37 96 01/29/17 21:02 01/29/17 20:53 01/29/17 20:52 01/29/17 20:43 01/29/17 19:45 01/29/17 19:44 99 01/29/17 19:06 97 01/29/17 18:09 99 01/29/17 18:03 01/29/17 17:54 100 01/29/17 17:40 100 01/29/17 17:36 01/29/17 17:15 01/29/17 16:53 99 01/29/17 16:49 99 01/29/17 16:31 99 Intake and Output 01/29/17 01/30/17 01/30/17 22:59 06:59 14:59 Intake Total 180 Output Total 850 575 Balance -850 395 Intake: Oral 180 Output: Urine 850 575 Other: Voiding Method Indwelling Catheter Indwelling Catheter Weight 55.792 kg 60.1 kg Head exam was generally normal. There was no scleral icterus or corneal arcus. Mucous membranes were moist. Neck is supple and the patient is edentulous. No goiter or neck masses. Lungs sounds are diminished in lung bases bilaterally along with some few scattered expiratory wheeze. Heart sounds are regular rhythm normal S1-S2 and there is no significant murmurs appreciated.Abdominal exam revealed normal bowel sounds. The abdomen was soft, non-tender, and without masses, organomegaly, or appreciable enlargement of the abdominal aorta.Examination of the extremities revealed easily palpable radial, femoral and pedal pulses. There was no cyanosis, clubbing or edema. Results - Laboratory Findings CBC and BMP: 01/30/17 06:36 01/30/17 06:36 PT/INR, D-dimer PT 10.9 sec (9.0-12.0) 01/29/17 16:43 INR 1.1 (<1.2) 01/29/17 16:43 Abnormal lab findings: Abnormal Labs 01/29/17 01/29/17 01/29/17 16:43 17:13 20:36 Lymphocytes # Sodium Potassium 5.4 H Glucose POC Glucose (mg/dL) 113 H Urine Blood Small H Urine RBC 9 H Urine Mucus Rare H 01/30/17 01/30/17 01/30/17 06:03 06:36 06:36 Lymphocytes # 0.8 L Sodium 135 L Potassium Glucose 130 H POC Glucose (mg/dL) 138 H Urine Blood Urine RBC Urine Mucus 01/30/17 11:51 Lymphocytes # Sodium Potassium Glucose POC Glucose (mg/dL) 110 H Urine Blood Urine RBC Urine Mucus - Diagnostic Findings Chest x-ray: image reviewed Assessment and Plan Plan: Assessment 1 acute COPD exacerbation with secondary shortness of breath 2 coronary artery disease, history of, currently free of any angina 3 preserved LV function with a normal ejection fraction 4 hypertension 5 anxiety/depression Plan We'll cover this patient with Xopenex and Atrovent about treatments around the clock. Pulmicort Respules 1 mg the last 2 minutes twice a day. Perforomist neb last treatment 20 g 1 nebulized treatment twice a day. IV Solu Medrol 60 mg every 6 hours. Heparin subcu for DVT prophylaxis. His continue BiPAP for now. Outpatient function test assess severity of his COPD. Oxygen evaluation at time of discharge. We'll continue to follow. Chest x-ray was reviewed. No acute abnormalities. There is hyperinflation and evidence of advanced COPD with significant limitation and exercise capacity and tolerance.
[2017-01-30 16:50] LABS: Glucose,Whole Blood 157 mg/dL (75-99)
[2017-01-30] MEDS: LEVOFLOXACIN 500MG-D5W PMX 500 MG in DEXTROSE/WATER 1 100ML.BAG IVPB SCH (18:07)
--- NOTE | 2017-01-30 19:31 | PN ---
DATE OF SERVICE: 01/30/2017 This 61-year-old gentleman admitted with COPD, acute exacerbation, as well as acute respiratory failure, was on BiPAP yesterday. The patient is slightly better today; still extremely short of breath. The patient is being closely monitored. Dr. Anaya saw the patient. Past medical history reviewed. REVIEW OF SYSTEMS: CARDIOVASCULAR SYSTEM: No angina, palpitations. RESPIRATORY SYSTEM: As mentioned earlier. GI: As mentioned earlier. : No dysuria or retention. NERVOUS SYSTEM: No numbness, weakness. Current medications are reviewed and include: 1. Xanax 0.25 t.i.d. 2. Pulmicort 1 mg b.i.d. 3. Coreg 25 mg p.o. b.i.d. 4. Perforomist 20 mg b.i.d. 5. Heparin 5000 units subcutaneously b.i.d. 6. Humalog scale. 7. Atrovent updrafts. 8. Xopenex 1.25 q.8 t.i.d. 9. Solu-Medrol 60 IV q.6. PHYSICAL EXAM: Patient is alert and oriented x3. Pulse 65, blood pressure 130/78 , respiration 18, temperature normal, pulse ox 96% on 2 L. HEENT: Conjunctivae normal. NECK: No jugular venous distention. CARDIOVASCULAR: S1, S2 muffled. RESPIRATORY: Breath sounds diminished at the bases. Bilateral scattered rhonchi and crackles. Expiratory wheezing also present. Breathing efforts are markedly increased. ABDOMEN: Soft, non-tender. LEGS: No edema. No swelling. NERVOUS SYSTEM: No focal deficit. LABS: CBC within normal limits. Sodium 135. ASSESSMENT: 1. Chronic obstructive pulmonary disease, acute exacerbation, with acute purulent tracheobronchitis with acute hypoxic respiratory failure, status post BiPAP. 2. History of hypertension. 3. History of liver disease. 4. History of myocardial infarction. 5. History of chronic obstructive pulmonary disease. 6. History of anxiety, depression not otherwise specified. 7. Remote history of nicotine dependence and cocaine. RECOMMENDATIONS AND DISCUSSION: I recommend to continue the current medications , continue the monitoring and symptomatic treatment. Continue with IV steroids. Continue with bronchodilators. Otherwise, closely monitor. I would also initiate IV antibiotics. Guarded prognosis because of multiple complex medical issues. Further recommendations to follow. See orders for further details. MTDD
[2017-01-30 20:41] LABS: Glucose,Whole Blood 121 mg/dL (75-99)
[2017-01-31 06:12] LABS: Glucose,Whole Blood 127 mg/dL (75-99)
[2017-01-31] MEDS: INSULIN LISPRO (humaLOG) 300 UNIT/3 ML VIAL SQ SCH ×4 (06:16→22:38)
[2017-01-31] MEDS: methylPREDNISolone SOD SUCCI 125 MG/2 ML VIAL IV SCH ×4 (06:30→22:38)
[2017-01-31] MEDS: CARVEDILOL 12.5 MG TAB PO SCH ×2 (06:30→16:56)
[2017-01-31 07:09] LABS: Basophils % (A) 0 %; CH 31.6; CHCM 33.3; Eosinophils % (A) 0 %; HDW 2.34; HGB 13.5 gm/dL (13.0-17.5); Luc # (Auto) 0.05; Luc % (Auto) 0; Lymphocytes # (A) 0.6 k/uL (1.0-4.8); Lymphocytes % (A) 5 %; MCH 31.4 pg (25.0-35.0); MCHC 32.9 g/dL (31.0-37.0); MCV 95.2 fL (80.0-100.0); Mean Platelet Volume 8.7; Monocytes # (A) 0.3 k/uL (0-1.0); Monocytes % (A) 2 %; Neutrophils % (A) 93 %; RDW 13.1 % (11.5-15.5); WBC (Perox) 13.44
[2017-01-31 07:25] LABS: Anion Gap 11 mmol/L; Blood Urea Nitrogen 24 mg/dL (9-20); Calcium 8.7 mg/dL (8.4-10.2); Carbon Dioxide 23 mmol/L (22-30); Chloride 101 mmol/L (98-107); Glucose 112 mg/dL (74-99); Non-African American GFR(MDRD) >60 (>60 ml/min/1.73 sqM); Potassium 4.3 mmol/L (3.5-5.1); Sodium 135 mmol/L (137-145)
[2017-01-31] MEDS: LEVALBUTEROL NEB (CONC) 1.25 MG/0.5 ML AMP INHALATION SCH ×3 (07:30→19:39)
[2017-01-31] MEDS: IPRATROPIUM 0.5 MG/2.5 ML NEBU INHALATION SCH ×3 (07:30→19:39)
[2017-01-31] MEDS: FORMOTEROL FUMARATE 20 MCG/2 ML NEBU INHALATION SCH ×2 (07:30→19:39)
[2017-01-31] MEDS: BUDESONIDE 1 MG/2 ML NEBU INHALATION SCH ×2 (07:30→19:39)
[2017-01-31] MEDS: HEPARIN SODIUM,PORCINE 5,000 UNIT/ML 1 ML VIAL SQ SCH ×2 (08:10→20:06)
[2017-01-31 11:18] LABS: Glucose,Whole Blood 114 mg/dL (75-99)
--- NOTE | 2017-01-31 13:36 | P.PN ---
Subjective A 61-year-old male patient, known history of advanced COPD, quit smoking few years back, also known to have coronary artery disease, presenting to the hospital because of worsening shortness of breath. Denied having any chest pain. Some cough and congestion and was quite anxious at time of arrival. No fever. No chills. No night sweats. No hemoptysis. Chest x-ray showing hyperinflation with no acute cardio pulmonary process. The patient was initially placed on a BiPAP at a pressure of 10/5 cm of water with an FiO2 of 40 %. This morning he is off the BiPAP. Able to speak in full sentences. Breath sounds remain quite diminished. He was started on a combination of bronchodilators and systemic steroids. No swelling in the lower extremities. No calf pain or tenderness. No aspiration. Patient lives with a significant other. Does not use oxygen at home. Uses only intermittently last treatment [id number]. Does not seem to be on any form of maintenance inhalers for COPD. Does not see a beveller operator on a regular basis. The patient is seen again today 01/31/2017 in follow-up on the selective care unit. He is awake and alert in no acute distress. He states he is breathing easier today as compared to yesterday. He denies any worsening shortness of breath, cough or congestion. Maintaining good O2 saturations in the high 90s on 2 L/m per nasal cannula. Hemodynamically stable. Afebrile. His sputum is positive for Haemophilus influenza. He is maintained on Levaquin. He is continued on bronchodilators, Perforomist and budesonide inhalations, IV Solu- Medrol. Objective - Vital Signs Vital signs: Vital Signs Temp 97 F L 01/31/17 08:00 Pulse 72 01/31/17 08:00 Resp 16 01/31/17 08:00 BP 123/80 01/31/17 08:00 Pulse Ox 99 01/31/17 08:00 Intake & Output 01/30/17 01/31/17 01/31/17 18:59 06:59 18:59 Intake Total 360 100 480 Output Total 950 850 300 Balance -590 -750 180 Weight 62.3 kg Intake: Intake, IV Titration 100 Amount Levofloxacin 500Mg-D5w 100 Pmx 500 mg In Dextrose/ Water 1 100ml.bag @ 100 mls/hr IVPB Q24H [facility] Rx#: [id number] Oral 360 480 Output: Urine 950 850 300 Other: Voiding Method Indwelling Catheter Indwelling Catheter Indwelling Catheter # Voids 1 - Exam Head exam was generally normal. There was no scleral icterus or corneal arcus. Mucous membranes were moist. Neck is supple and the patient is edentulous. No goiter or neck masses. Lungs sounds are diminished in lung bases bilaterally along with some few scattered expiratory wheeze. Heart sounds are regular rhythm normal S1-S2 and there is no significant murmurs appreciated.Abdominal exam revealed normal bowel sounds. The abdomen was soft, non-tender, and without masses, organomegaly, or appreciable enlargement of the abdominal aorta.Examination of the extremities revealed easily palpable radial, femoral and pedal pulses. There was no cyanosis, clubbing or edema. - Labs CBC & Chem 7: 01/31/17 06:22 01/31/17 06:22 Labs: Abnormal Lab Results - Last 24 Hours (Table) 01/30/17 01/30/17 01/31/17 Range/Units 16:48 20:39 06:11 WBC (3.8-10.6) k/uL Neutrophils # (1.3-7.7) k/uL Lymphocytes # (1.0-4.8) k/uL Sodium (137-145) mmol/L BUN (9-20) mg/dL Glucose (74-99) mg/dL POC Glucose (mg/dL) 157 H 121 H 127 H (75-99) mg/dL 01/31/17 01/31/17 01/31/17 Range/Units 06:22 06:22 11:16 WBC 13.0 H (3.8-10.6) k/uL Neutrophils # 12.0 H (1.3-7.7) k/uL Lymphocytes # 0.6 L (1.0-4.8) k/uL Sodium 135 L (137-145) mmol/L BUN 24 H (9-20) mg/dL Glucose 112 H (74-99) mg/dL POC Glucose (mg/dL) 114 H (75-99) mg/dL Microbiology - Last 24 Hours (Table) 01/29/17 20:30 Gram Stain - Preliminary Sputum Sputum Culture - Preliminary Haemophilus influenzae 01/29/17 16:43 Blood Culture - Preliminary Blood No Growth after 24 hours Assessment and Plan Plan: Assessment 1 acute exacerbation of chronic COPD exacerbation with secondary shortness of breath, complicated by Haemophilus influenza. 2 coronary artery disease, history of, currently free of any angina 3 preserved LV function with a normal ejection fraction 4 hypertension 5 anxiety/depression Plan The patient was seen and evaluated by Dr. Castillo. His labs and microbiology were reviewed . We'll continue with his current medications. We will increase his activity as tolerated. We'll continue to follow.
[2017-01-31 16:26] LABS: Glucose,Whole Blood 136 mg/dL (75-99)
[2017-01-31] MEDS: LEVOFLOXACIN 500MG-D5W PMX 500 MG in DEXTROSE/WATER 1 100ML.BAG IVPB SCH (16:55)
[2017-01-31 20:31] LABS: Glucose,Whole Blood 161 mg/dL (75-99)
[2017-01-31] MEDS: ALPRAZolam 0.25 MG TAB PO PRN (22:37)
[2017-01-31 22:46] LABS: Glucose,Whole Blood 142 mg/dL (75-99)
[2017-02-01 05:53] LABS: Glucose,Whole Blood 141 mg/dL (75-99)
[2017-02-01] MEDS: INSULIN LISPRO (humaLOG) 300 UNIT/3 ML VIAL SQ SCH ×4 (06:04→21:17)
[2017-02-01] MEDS: methylPREDNISolone SOD SUCCI 125 MG/2 ML VIAL IV SCH ×2 (06:05→12:04)
[2017-02-01] MEDS: CARVEDILOL 12.5 MG TAB PO SCH ×2 (06:05→16:47)
[2017-02-01 06:19] LABS: Basophils % (A) 0 %; CH 31.7; CHCM 33.4; Eosinophils % (A) 0 %; HGB 13.5 gm/dL (13.0-17.5); Luc # (Auto) 0.04; Luc % (Auto) 0; Lymphocytes # (A) 0.6 k/uL (1.0-4.8); Lymphocytes % (A) 5 %; MCH 31.5 pg (25.0-35.0); MCV 95.4 fL (80.0-100.0); Mean Platelet Volume 8.9; Monocytes # (A) 0.4 k/uL (0-1.0); Monocytes % (A) 3 %; Neutrophils # (A) 11.3 k/uL (1.3-7.7); Neutrophils % (A) 92 %; RBC 4.29 m/uL (4.30-5.90); RDW 13.3 % (11.5-15.5); WBC 12.3 k/uL (3.8-10.6); WBC (Perox) 12.94
[2017-02-01 06:28] LABS: Anion Gap 8 mmol/L; Blood Urea Nitrogen 20 mg/dL (9-20); Calcium 8.8 mg/dL (8.4-10.2); Carbon Dioxide 28 mmol/L (22-30); Chloride 100 mmol/L (98-107); Glucose 141 mg/dL (74-99); Non-African American GFR(MDRD) >60 (>60 ml/min/1.73 sqM); Potassium 4.5 mmol/L (3.5-5.1); Sodium 136 mmol/L (137-145)
[2017-02-01] MEDS: IPRATROPIUM 0.5 MG/2.5 ML NEBU INHALATION SCH ×3 (08:06→20:04)
[2017-02-01] MEDS: BUDESONIDE 1 MG/2 ML NEBU INHALATION SCH ×2 (08:06→20:04)
[2017-02-01] MEDS: LEVALBUTEROL NEB (CONC) 1.25 MG/0.5 ML AMP INHALATION SCH ×3 (08:06→20:04)
[2017-02-01] MEDS: FORMOTEROL FUMARATE 20 MCG/2 ML NEBU INHALATION SCH ×2 (08:06→20:04)
--- NOTE | 2017-02-01 08:39 | PN ---
DATE OF SERVICE: 01/31/2017 This 61-year-old gentleman was admitted with chronic obstructive pulmonary disease acute exacerbation. Still using BiPAP at night time. Patient feeling slightly better. No fever, chills. Cough is reported. On exam, alert and oriented x3. Pulse is 76, blood pressure 123/80, respirations 16, temperature 97 degrees, pulse ox 99% on 2-L. HEENT: Conjunctivae normal. NECK: No jugular venous distention. CARDIOVASCULAR: S1, S2. RESPIRATORY: Breath sounds diminished at the bases. Bilateral rhonchi and crackles. Chest is emphysematous. ABDOMEN: Soft, scaphoid. LEGS: No edema, no swelling. NERVOUS SYSTEM: No focal deficits. LABS: WBC 13. ASSESSMENT: 1. Chronic obstructive pulmonary disease acute exacerbation with acute purulent tracheobronchitis with acute hypoxic respiratory failure, status post BiPAP with H. Influenza. 2. Hypertension. 3. History of liver disease. 4. History of myocardial infarction. RECOMMENDATIONS AND DISCUSSION: I recommend to continue the current medications, continue monitoring, continue symptomatic treatment. Continue with bronchodilators. Continue the rest of the medications. Ambulation. Guarded prognosis. Further recommendations to follow. MTDD
[2017-02-01] MEDS: HEPARIN SODIUM,PORCINE 5,000 UNIT/ML 1 ML VIAL SQ SCH ×2 (09:05→21:17)
--- NOTE | 2017-02-01 10:57 | P.PN ---
Subjective Principal diagnosis: Acute exacerbation of COPD complicated by Haemophilus influenza. A 61-year-old male patient, known history of advanced COPD, quit smoking few years back, also known to have coronary artery disease, presenting to the hospital because of worsening shortness of breath. Denied having any chest pain. Some cough and congestion and was quite anxious at time of arrival. No fever. No chills. No night sweats. No hemoptysis. Chest x-ray showing hyperinflation with no acute cardio pulmonary process. The patient was initially placed on a BiPAP at a pressure of 10/5 cm of water with an FiO2 of 40 %. This morning he is off the BiPAP. Able to speak in full sentences. Breath sounds remain quite diminished. He was started on a combination of bronchodilators and systemic steroids. No swelling in the lower extremities. No calf pain or tenderness. No aspiration. Patient lives with a significant other. Does not use oxygen at home. Uses only intermittently last treatment [id number]. Does not seem to be on any form of maintenance inhalers for COPD. Does not see a seat coverer on a regular basis. The patient is seen again today 01/31/2017 in follow-up on the selective care unit. He is awake and alert in no acute distress. He states he is breathing easier today as compared to yesterday. He denies any worsening shortness of breath, cough or congestion. Maintaining good O2 saturations in the high 90s on 2 L/m per nasal cannula. Hemodynamically stable. Afebrile. His sputum is positive for Haemophilus influenza. He is maintained on Levaquin. He is continued on bronchodilators, Perforomist and budesonide inhalations, IV Solu- Medrol. Reevaluated today on 02/01/2017, continues to gradually improve, less cough and less wheezing less shortness of breath. Presently on nasal cannula, sputum was noted to be positive for Haemophilus influenza. Remains on antibiotics in the form of Levaquin is also on bronchodilators as listed above also on IV Solu- Medrol. CBC is relatively normal except for slight leukocytosis. Electrolytes and renal profile are noted to be normal. Objective - Vital Signs Vital signs: Vital Signs Temp 96.9 F L 02/01/17 04:00 Pulse 88 02/01/17 09:15 Resp 18 02/01/17 04:00 BP 139/78 02/01/17 06:04 Pulse Ox 99 02/01/17 04:00 Intake & Output 01/31/17 02/01/17 02/01/17 18:59 06:59 18:59 Intake Total 840 240 Output Total 800 1700 Balance 40 -1700 240 Weight 62.4 kg Intake: Oral 840 240 Output: Urine 800 1700 Other: Voiding Method Indwelling Catheter Indwelling Catheter # Voids 1 2 - Exam Head exam was generally normal. There was no scleral icterus or corneal arcus. Mucous membranes were moist. Neck is supple and the patient is edentulous. No goiter or neck masses. Lungs sounds are diminished in lung bases bilaterally along with some few scattered expiratory wheeze. Heart sounds are regular rhythm normal S1-S2 and there is no significant murmurs appreciated.Abdominal exam revealed normal bowel sounds. The abdomen was soft, non-tender, and without masses, organomegaly, or appreciable enlargement of the abdominal aorta.Examination of the extremities revealed easily palpable radial, femoral and pedal pulses. There was no cyanosis, clubbing or edema. - Labs CBC & Chem 7: 02/01/17 05:58 02/01/17 05:58 Labs: Abnormal Lab Results - Last 24 Hours (Table) 01/31/17 01/31/17 01/31/17 Range/Units 11:16 16:24 20:29 WBC (3.8-10.6) k/uL RBC (4.30-5.90) m/uL Neutrophils # (1.3-7.7) k/uL Lymphocytes # (1.0-4.8) k/uL Sodium (137-145) mmol/L Glucose (74-99) mg/dL POC Glucose (mg/dL) 114 H 136 H 161 H (75-99) mg/dL 01/31/17 02/01/17 02/01/17 Range/Units 22:35 05:51 05:58 WBC 12.3 H (3.8-10.6) k/uL RBC 4.29 L (4.30-5.90) m/uL Neutrophils # 11.3 H (1.3-7.7) k/uL Lymphocytes # 0.6 L (1.0-4.8) k/uL Sodium (137-145) mmol/L Glucose (74-99) mg/dL POC Glucose (mg/dL) 142 H 141 H (75-99) mg/dL 02/01/17 Range/Units 05:58 WBC (3.8-10.6) k/uL RBC (4.30-5.90) m/uL Neutrophils # (1.3-7.7) k/uL Lymphocytes # (1.0-4.8) k/uL Sodium 136 L (137-145) mmol/L Glucose 141 H (74-99) mg/dL POC Glucose (mg/dL) (75-99) mg/dL Microbiology - Last 24 Hours (Table) 01/29/17 20:30 Gram Stain - Final Sputum Sputum Culture - Final Haemophilus influenzae 01/29/17 16:43 Blood Culture - Preliminary Blood No Growth after 48 hours Assessment and Plan Plan: 1 acute exacerbation of chronic COPD exacerbation with secondary shortness of breath, complicated by Haemophilus influenza. 2 coronary artery disease, history of, currently free of any angina 3 preserved LV function with a normal ejection fraction 4 hypertension 5 anxiety/depression Recommendation: Continue present meds, including bronchodilators antibiotics steroids, consider discharge planning in the next 24 hours. Time with Patient: Less than 30
[2017-02-01 11:17] LABS: Glucose,Whole Blood 176 mg/dL (75-99)
[2017-02-01 16:29] LABS: Glucose,Whole Blood 111 mg/dL (75-99)
[2017-02-01] MEDS: methylPREDNISolone SOD SUCCI 40 MG/ML 1 ML VIAL IV SCH ×2 (16:46→23:53)
[2017-02-01] MEDS: LEVOFLOXACIN 500MG-D5W PMX 500 MG in DEXTROSE/WATER 1 100ML.BAG IVPB SCH (16:46)
[2017-02-01 20:52] LABS: Glucose,Whole Blood 154 mg/dL (75-99)
[2017-02-01] MEDS: ALPRAZolam 0.25 MG TAB PO PRN (21:32)
[2017-02-02 06:03] LABS: Glucose,Whole Blood 123 mg/dL (75-99)
[2017-02-02] MEDS: INSULIN LISPRO (humaLOG) 300 UNIT/3 ML VIAL SQ SCH ×4 (06:05→20:45)
[2017-02-02 06:19] LABS: Basophils % (A) 0 %; CH 31.1; CHCM 32.9; Eosinophils % (A) 0 %; HCT 42.3 % (39.0-53.0); HDW 2.34; HGB 14.3 gm/dL (13.0-17.5); Luc # (Auto) 0.06; Luc % (Auto) 1; Lymphocytes # (A) 0.6 k/uL (1.0-4.8); Lymphocytes % (A) 6 %; MCH 32.1 pg (25.0-35.0); MCHC 33.8 g/dL (31.0-37.0); MCV 94.8 fL (80.0-100.0); Monocytes # (A) 0.4 k/uL (0-1.0); Monocytes % (A) 4 %; Neutrophils # (A) 8.8 k/uL (1.3-7.7); Neutrophils % (A) 90 %; RBC 4.46 m/uL (4.30-5.90); RDW 12.6 % (11.5-15.5); WBC 9.8 k/uL (3.8-10.6); WBC (Perox) 10.05
[2017-02-02] MEDS: CARVEDILOL 12.5 MG TAB PO SCH ×2 (06:25→17:26)
[2017-02-02 06:30] LABS: Anion Gap 10 mmol/L; Blood Urea Nitrogen 21 mg/dL (9-20); Calcium 8.9 mg/dL (8.4-10.2); Carbon Dioxide 30 mmol/L (22-30); Chloride 96 mmol/L (98-107); Glucose 113 mg/dL (74-99); Non-African American GFR(MDRD) >60 (>60 ml/min/1.73 sqM); Potassium 4.6 mmol/L (3.5-5.1); Sodium 136 mmol/L (137-145)
[2017-02-02] MEDS: methylPREDNISolone SOD SUCCI 40 MG/ML 1 ML VIAL IV SCH ×2 (08:12→17:26)
[2017-02-02] MEDS: HEPARIN SODIUM,PORCINE 5,000 UNIT/ML 1 ML VIAL SQ SCH ×2 (08:12→20:44)
--- NOTE | 2017-02-02 08:42 | PN ---
DATE OF SERVICE: This 61 -year-old gentleman who was admitted with COPD acute exacerbation is improving significantly. No chest pain. No palpitations. No fever. On exam, alert and oriented times three. Pulse 63. Blood pressure 133/80. Respiratory rate 16. Temperature normal. Pulse ox 97% on 2 L. HEENT: Conjunctivae normal. NECK: No jugular venous distention. CARDIOVASCULAR: S1, S2 muffled. RESPIRATORY: Breath sounds diminished at the bases. A few scattered rhonchi and crackles. Expiratory wheezing also present. Abdomen soft, nontender. LEGS : No edema. No swelling. NERVOUS SYSTEM: No focal deficits. LABS: WBC 12.3, glucose noted. ASSESSMENT: 1. Chronic obstructive pulmonary disease, acute exacerbation with acute purulent tracheobronchitis with acute hypoxic respiratory failure, status post BIPAP with H influenza. 2. Hypertension. 3. History of liver disease. 4. History of myocardial infarction. RECOMMENDATIONS AND DISCUSSION: Recommend to continue current medications. Continue monitoring and symptomatic treatment. Otherwise, steroids dose tapered. Bronchodilators. Continue empiric antibiotics. Continue the rest of the medications. Guarded prognosis. Further recommendations to follow. MTDD
[2017-02-02] MEDS: FORMOTEROL FUMARATE 20 MCG/2 ML NEBU INHALATION SCH ×2 (08:47→19:51)
[2017-02-02] MEDS: BUDESONIDE 1 MG/2 ML NEBU INHALATION SCH ×2 (08:47→19:51)
[2017-02-02] MEDS: LEVALBUTEROL NEB (CONC) 1.25 MG/0.5 ML AMP INHALATION SCH ×3 (08:47→19:51)
[2017-02-02] MEDS: IPRATROPIUM 0.5 MG/2.5 ML NEBU INHALATION SCH ×3 (08:47→19:51)
[2017-02-02 11:18] LABS: Glucose,Whole Blood 99 mg/dL (75-99)
[2017-02-02 14:02] VITALS: BMI 17.8
[2017-02-02] MEDS: LEVOFLOXACIN 500MG-D5W PMX 500 MG in DEXTROSE/WATER 1 100ML.BAG IVPB SCH (17:23)
[2017-02-02 17:43] LABS: Glucose,Whole Blood 124 mg/dL (75-99)
[2017-02-02 20:49] LABS: Glucose,Whole Blood 142 mg/dL (75-99)
--- NOTE | 2017-02-02 21:38 | PN ---
63-year-old male admitted with diagnosis of COPD exacerbation complicated by hemoptysis influenza. He also suffers from CAD, preserved LV function, hypertension and anxiety with depression. The patient seems improved. He was transferred from the sixth floor down to the fifth floor. Less short of breath. Less cough. Less wheezing. Not producing any phlegm. No fever. No chills. All in all doing reasonably well. Currently vital signs include temperature 97, heart rate is 66, respiratory rate 20. Blood pressure 130/94. Mean 106 and room air saturation 93%. Appears in no acute distress. HEENT: Examination is grossly unremarkable. Mucous membranes are moist. No oral lesions. Neck is supple. Full range of motion. No neck vein distention. No adenopathy, thyromegaly. Cardiovascular examination reveals regular rate and rhythm. S1, S2 normal. No S3, S4 or murmur noted. Lungs reveal a few scattered rhonchi and wheezes. Breath sounds are diminished. Breath sounds are equal bilaterally. There is slight prolongation. Abdomen soft. Bowel sounds are heard. Extremities intact. No cyanosis, clubbing or edema. Lab data reviewed. White count 9.8. Hemoglobin 14.3. Hematocrit 42.3. Platelet count 348,000. Sodium 136, potassium 4.6, chloride 96, CO2 30. BUN and creatinine were 21 and 0.70. Anion gap 10. Chest x-ray on admission shows evidence of just COPD . No acute cardiopulmonary disease. Microbiology shows sputum with hemophiles influenza. Medications are reviewed. Allergies are reviewed. X-rays and labs are reviewed. ASSESSMENT: 1. Chronic obstructive pulmonary disease exacerbation complicated by hemophilias influenza, purulent tracheobronchitis. 2. Coronary artery disease. 3. Hypertension. 4. Anxiety/depression. PLAN: The patient is doing well. We will continue to follow. Prognosis guarded. Will continue to follow-up this patient until discharge. The patient s medications are reviewed. Medications seem appropriate. Currently on Xanax, Pulmicort, Coreg, Formoterol, heparin, insulin, updrafts with Albuterol and Atrovent. Levaquin and Solu-Medrol. The Pulmicort and Formoterol can be converted to Symbicort. Will continue to follow. Prognosis is guarded. MTDD
[2017-02-02 22:44] VITALS: TEMP 96.4
[2017-02-03] MEDS: methylPREDNISolone SOD SUCCI 40 MG/ML 1 ML VIAL IV SCH ×2 (00:06→08:44)
[2017-02-03] MEDS: LEVALBUTEROL NEB (CONC) 1.25 MG/0.5 ML AMP INHALATION SCH (07:14)
[2017-02-03] MEDS: FORMOTEROL FUMARATE 20 MCG/2 ML NEBU INHALATION SCH (07:14)
[2017-02-03] MEDS: BUDESONIDE 1 MG/2 ML NEBU INHALATION SCH (07:14)
[2017-02-03] MEDS: IPRATROPIUM 0.5 MG/2.5 ML NEBU INHALATION SCH ×3 (07:14→15:20)
[2017-02-03 07:45] LABS: Glucose,Whole Blood 108 mg/dL (75-99)
[2017-02-03 08:13] LABS: Anion Gap 9 mmol/L; Blood Urea Nitrogen 22 mg/dL (9-20); Calcium 8.6 mg/dL (8.4-10.2); Carbon Dioxide 29 mmol/L (22-30); Chloride 96 mmol/L (98-107); Glucose 111 mg/dL (74-99); Non-African American GFR(MDRD) >60 (>60 ml/min/1.73 sqM); Potassium 4.3 mmol/L (3.5-5.1); Sodium 134 mmol/L (137-145)
[2017-02-03 08:19] LABS: Basophils % (A) 0 %; CH 31.6; CHCM 33.3; Eosinophils % (A) 0 %; HCT 46.9 % (39.0-53.0); HDW 2.26; HGB 15.2 gm/dL (13.0-17.5); Luc # (Auto) 0.06; Luc % (Auto) 1; Lymphocytes # (A) 0.7 k/uL (1.0-4.8); Lymphocytes % (A) 6 %; MCH 30.8 pg (25.0-35.0); MCHC 32.4 g/dL (31.0-37.0); MCV 95.2 fL (80.0-100.0); Mean Platelet Volume 8.5; Monocytes # (A) 0.5 k/uL (0-1.0); Monocytes % (A) 4 %; Neutrophils # (A) 10.6 k/uL (1.3-7.7); Neutrophils % (A) 90 %; RBC 4.93 m/uL (4.30-5.90); RDW 13.4 % (11.5-15.5); WBC 11.8 k/uL (3.8-10.6)
--- NOTE | 2017-02-03 08:20 | PN ---
DATE OF SERVICE: 02/02/2017 This is a 61-year-old gentleman who was admitted with multiple medical problems and COPD. Feeling slightly better. No chest pain or palpitation, no fever. The patient was using BiPAP earlier. On exam, alert and oriented x3. Pulse is 68, blood pressure is 130/94, respirations 20, temperature is 97 degrees, pulse ox 91% on room air. HEENT: Conjunctivae normal. NECK: No jugular venous distension. CARDIOVASCULAR SYSTEM: S1, S2. RESPIRATORY: Breath sounds diminished at the bases, bilateral scattered rhonchi , expiratory wheezing and crackles. ABDOMEN: Soft, nontender. LEGS: No edema, no swelling. NERVOUS SYSTEM: No focal deficits. Labs are CBC within normal limits. Sodium 136. ASSESSMENT: 1. Chronic obstructive pulmonary disease acute exacerbation with acute purulent tracheobronchitis with acute hypoxic respiratory failure, status post BiPAP and influenza and haemophilus influenza. 2. Hypertension. 3. History of liver disease. 4. History of myocardial infarction. RECOMMENDATION: Recommend to continue with the current medication. Continue with the monitoring and symptomatic treatment. Guarded prognosis because of multiple complex medical issues. Further recommendations to follow. See orders for further details. MTDD
[2017-02-03 08:36] VITALS: BP 180/82; RESP 18
[2017-02-03] MEDS: INSULIN LISPRO (humaLOG) 300 UNIT/3 ML VIAL SQ SCH ×2 (08:40→13:29)
[2017-02-03] MEDS: CARVEDILOL 12.5 MG TAB PO SCH (08:44)
[2017-02-03] MEDS: HEPARIN SODIUM,PORCINE 5,000 UNIT/ML 1 ML VIAL SQ SCH (08:44)
[2017-02-03] MEDS ORDERED: ALBUTEROL NEBULIZED 2.5 MG/3 ML INHALATION PRN (10:18)
[2017-02-03] MEDS: ALBUTEROL NEBULIZED 2.5 MG/3 ML INHALATION SCH ×2 (11:04→15:19)
[2017-02-03 11:17] LABS: Glucose,Whole Blood 254 mg/dL (75-99)
[2017-02-03 11:18] VITALS: PULSE 80
--- NOTE | 2017-02-03 13:35 | PN ---
This is a 61-year-old male that has been in the hospital since January 29. He came in with COPD exacerbation complicated by hemophilias influenza, purulent tracheobronchitis. Also suffers from CAD, hypertension, anxiety and depression. The patient seems to be doing relatively well. Feeling better. Less short of breath. Less cough and wheeze. Not producing any phlegm. No fever. No chills. From my perspective, could be discharged to home. X-rays were reviewed. Labs and medications were all reviewed. Current vital signs are reviewed. Temperature 96.4, heart rate 60, respiratory rate 18, blood pressure 157/88. Mean 111. Room air saturation 93 to 99%. Appears in no acute distress. HEENT examination is grossly unremarkable. Mucous membranes are moist. No oral lesions. Neck is supple. Full range of motion. No adenopathy or thyromegaly. Neck veins are flat. Cardiovascular examination reveals a regular rhythm and rate, S1, S2 normal. No S3, no S4 or murmur. Lungs reveal a few scattered rhonchi. Breath sounds are diminished. Slight prolongation. Slight wheezes on forced maneuver. Abdomen is soft. Bowel sounds are heard. There is no masses or tenderness. Extremities are intact. No cyanosis, clubbing or edema. Skin without rash. Brief neurological examination is nonfocal. Microbiology is reviewed. We mentioned the results yesterday. Labs are reviewed. White count 11.8. Hemoglobin and hematocrit and platelet count all normal. Sodium 134, potassium 4.3, chloride 96, CO2 29, BUN and creatinine was 22 and 0.68. Medications were reviewed. No new x-rays to report. ASSESSMENT: 1. Chronic obstructive pulmonary disease exacerbation complicated by purulent tracheobronchitis. 2. Coronary artery disease. 3. Hypertension. 4. Anxiety. 5. Depression. PLAN: The patients medications are reviewed. Everything seems to be in order. We will continue to follow. We will discontinue the Pulmicort and Formoterol. The patient will be given Symbicort. The Solu-Medrol can be switched to Prednisone. No additional recommendations are made. Prognosis is guarded. We will continue to follow. MTDD
[2017-02-03] MEDS ORDERED: LEVOFLOXACIN 500 MG TAB PO SCH (16:00)
[2017-02-03] MEDS ORDERED: SYMBICORT 160-4.5 MCG INHALER INHALATION SCH (20:00)
[2017-02-04] MEDS ORDERED: predniSONE 20 MG TAB PO SCH (09:00)
--- NOTE | 2017-02-05 17:03 | DS ---
DATE OF SERVICE: 02/03/2017 FINAL DIAGNOSES: 1. Chronic obstructive pulmonary disease, acute exacerbation, with acute purulent tracheobronchitis with acute hypoxic respiratory failure, status post BiPAP with Haemophilus influenzae. 2. Hypertension. 3. History of liver disease. 4. History of myocardial infarction. DISCHARGE DISPOSITION: Patient will be discharged in stable condition with guarded prognosis. HISTORY OF PRESENT ILLNESS: This is a 61-year-old gentleman with a past medical history of multiple medical issues was admitted COPD, acute exacerbation. He was treated with bronchodilators and antibiotics and steroids. Patient improved significantly. Dr. Boss saw the patient and cleared him for discharge. On exam, vitals are stable. CARDIOVASCULAR: S1, S2 muffled. RESPIRATORY: A few scattered rhonchi. ABDOMEN: Soft. NERVOUS SYSTEM: No focal deficit. DISCHARGE ADVICE AND MEDICATIONS: 1. Diet is cardiac. 2. Activity limited until followup. 3. Follow up with primary physician in 2 to 3 days. 4. Follow up with Dr. Boss as advised. 5. Symbicort 160/4.5 two puffs b.i.d. 6. Coreg 25 mg b.i.d. 7. DuoNeb q.i.d. and p.r.n. 8. Levaquin 500 mg daily. 9. Prednisone taper: 40 mg daily for 3 days; 30 mg daily for 3 days; 20 mg daily for 3 days; 10 mg daily for 3 days. MTDD
== END 2017-02-03 15:18 | disposition home health service (06) | DRG 190 ==
LOC: EC 16:30 → 6SEL 18:09 → 5MS5E 02-02 09:10
PROVIDERS: ADMIT Hospitalist; ATTEND Hospitalist
PROC: 5A09557 Assistance with Respiratory Ventilation, Greater than 96 Consecutive Hours, Continuous Positive Airway Pressure (ICD-10-PCS; principal; 2017-01-29)
DX: J44.0 Chronic obstructive pulmonary disease with (acute) lower respiratory infection (principal); J96.01 Acute respiratory failure with hypoxia; I10 Essential (primary) hypertension; F41.1 Generalized anxiety disorder; J44.1 Chronic obstructive pulmonary disease with (acute) exacerbation; I25.10 Atherosclerotic heart disease of native coronary artery without angina pectoris; I25.2 Old myocardial infarction; J11.1 Influenza due to unidentified influenza virus with other respiratory manifestations; J20.9 Acute bronchitis, unspecified; F32.9 Major depressive disorder, single episode, unspecified; Z80.3 Family history of malignant neoplasm of breast; Z87.01 Personal history of pneumonia (recurrent); Z87.891 Personal history of nicotine dependence
CPT/HCPCS: 36415; 71020; 80048; 80053; 81001; 82550; 82553; 83036; 83605; 83735; 84484; 85025; 85610; 85730; 87040; 87070; 87205; 93005; 94640; 94644; 94660; 94760; 96374; 99285

== ENCOUNTER 2019-12-13 13:26 | Emergency (ER) | payer MEDICARE, OTHER ==
[2019-12-13 13:34] VITALS: BP 165/84; PULSE 111; RESP 18; TEMP 97.7
[2019-12-13] MEDS ORDERED: LIDOCAINE URO-JET JELLY 2% 5 ML KIT URETHRAL ONE (13:37)
[2019-12-13 14:35] LABS: Amorphous Sediment,Urine Rare /hpf; Appearance,Urine Cloudy (Clear); Bacteria,Urine Moderate /hpf; Bilirubin,Urine Negative (Negative); Blood,Urine Small (Negative); Color,Urine Yellow; Glucose,Urine (UA) Negative (Negative); Ketones,Urine Negative (Negative); Leukocyte Esterase,Urine Large (Negative); Nitrite,Urine Positive (Negative); Protein,Urine Negative (Negative); RBC,Urine 5 /hpf (0-5); Urobilinogen,Urine <2.0 mg/dL (<2.0); WBC,Urine 102 /hpf (0-5)
[2019-12-13] MEDS ORDERED: cefTRIAXone IN SWFI 1,000 MG/10 ML SYRINGE IVP STA (14:39)
--- NOTE | 2019-12-13 15:03 | ED ---
Male Urogenital HPI <Naveed Chicas - Last Filed: 12/13/19 15:10> - General Source: Caregiver Mode of arrival: ambulatory Limitations: language barrier, altered mental status <Andre Estrella - Last Filed: 12/13/19 20:32> - General Chief complaint: Urogenital Stated complaint: cannot urinate Time Seen by Provider: 12/13/19 13:36 - History of Present Illness Initial comments: Patient is a 64-year-old male with history of urinary obstruction presenting to emergency Department with a chief complaint of unable to urinate. Patient states he has not been able to urinate for the last 1.5 days. Patient states his bladder is full and is some tenderness in the suprapubic region as well. States this has been a previous issue for him and he had to be in the emergency department in order to have a Leos placed. States she does not see a urologist. Denies any night sweats fevers or chills. Denies any nausea vomiting diarrhea. Denies hematuria, hematochezia or melena. Denies abdominal or back pain. (Andre Estrella) - Related Data Home Medications Medication Instructions Recorded Confirmed Carvedilol [Coreg] 25 mg PO BID 09/07/16 01/29/17 Previous Rx's Medication Instructions Recorded Budesonide-Formot 160-4.5 Mcg 2 puff INHALATION BID #1 inhaler 02/03/17 [Symbicort 160-4.5 Mcg Inhaler] Ipratropium-Albuterol Nebulize 3 ml INHALATION QID #120 neb 02/03/17 [Duoneb 0.5 mg-3 mg/3 ml Soln] Levofloxacin [Levaquin] 500 mg PO DAILY@1600 #5 tab 02/03/17 predniSONE 10 mg PO DIRECTED #30 tab 02/03/17 Sulfamethox-Tmp 800-160Mg [Bactrim 1 each PO Q12HR #20 tab 12/13/19 Ds] Allergies Allergy/AdvReac Type Severity Reaction Status Date / Time No Known Allergies Allergy Verified 12/13/19 13:34 Review of Systems ROS Other: All systems not noted in ROS Statement are negative. <Naveed Chicas - Last Filed: 12/13/19 15:10> ROS Other: All systems not noted in ROS Statement are negative. <Andre Estrella Last Filed: 12/13/19 20:32> ROS Statement: Those systems with pertinent positive or pertinent negative responses have been documented in the HPI. Past Medical History Past Medical History: COPD, CVA/TIA, Hypertension, Liver Disease, Myocardial Infarction ([place]), Pneumonia Additional Past Medical History / Comment(s): COPD, hypertension, coronary artery disease patient has had a cardiac catheterization 2010 revealing right dominant system with a 50% circumflex stenosis, 50% RCA stenosis, minimal disease in the left main and LAD. Echocardiogram has shown a preserved LV function from 2016 and the patient has a ejection fraction of 55-60%., generali zed anxiety disorder, depression, hydrocele, childhood testicular injury, broken clavicle, Last Myocardial Infarction Date:: UNK History of Any Multi-Drug Resistant Organisms: None Reported Past Surgical History: Adenoidectomy, Heart Catheterization, Hernia Repair, Orthopedic Surgery, Tonsillectomy Additional Past Surgical History / Comment(s): RT INGUINAL HERNIA, ORIF of a left clavicular fracture Past Anesthesia/Blood Transfusion Reactions: No Reported Reaction Past Psychological History: Anxiety, Depression Smoking Status: Former smoker Past Alcohol Use History: Occasional Past Drug Use History: None Reported - Past Family History Father Family Medical History: Unable to Obtain Additional Family Medical History / Comment(s): had heart issuse Mother Family Medical History: Cancer Additional Family Medical History / Comment(s): breast CA <Andre Estrella - Last Filed: 12/13/19 20:32> General Exam Limitations: no limitations, language barrier (Poor hearing) General appearance: alert, in no apparent distress Head exam: Present: atraumatic, normocephalic, normal inspection Eye exam: Present: normal appearance, PERRL, EOMI Pupils: Present: normal accommodation ENT exam: Present: normal exam, normal oropharynx, mucous membranes moist Neck exam: Present: normal inspection, full ROM Respiratory exam: Present: normal lung sounds bilaterally. Absent: respiratory distress, wheezes Cardiovascular Exam: Present: regular rate, normal rhythm, normal heart sounds GI/Abdominal exam: Present: soft, tenderness (Suprapubic tenderness). Absent: distended exam: Present: normal inspection. Absent: testicular tenderness, urethral discharge, scrotal swelling, vertical testicular lie Extremities exam: Present: normal inspection, full ROM Back exam: Present: normal inspection, full ROM Neurological exam: Present: alert, oriented X3 Psychiatric exam: Present: normal affect, normal mood Skin exam: Present: warm, dry, intact, normal color <Andre Estrella - Last Filed: 12/13/19 20:32> Course <Juan FranciscoNaveed - Last Filed: 12/13/19 15:10> Vital Signs 12/13/19 13:30 Temperature 97.7 F Pulse Rate 111 H Respiratory 18 Rate Blood Pressure 165/84 O2 Sat by Pulse 95 Oximetry - Reevaluation(s) Reevaluation #1: 12/13/19 15:10 PA supervision: I personally evaluate this case 50% complaints of difficulty urinating for over a day. He did demonstrate evidence of bladder distention and did require decompression. She also has evidence of UTI he will be appropriately treated. I do agree with the assessment and plan. (Naveed Chicas) Medical Decision Making <Andre Estrella - Last Filed: 12/13/19 20:32> - Medical Decision Making Patient is a 64-year-old male presenting to the emergency department with a chief complaint of urinary obstruction. Patient has history of urinary obstruction and he receives a Leos catheter in the ED. Full cath was used and patient was able to drain over 750 mL of urine. Bladder scan prior to fully catheter showed over 800 mL of urine. After 4 catheter was placed, patient states there is great relief in symptoms. UA reveals a urinary tract infection. Patient will be started on Rocephin in the ED and discharged with Bactrim. Advised the patient to follow-up with a urologist. Return parameters were thoroughly discussed with patient is understanding and agreeable. Case discussed with physician. (Andre Estrella) - Lab Data Lab Results 12/13/19 Range/Units 14:16 Urine Color Yellow Urine Appearance Cloudy (Clear) Urine pH 7.0 (5.0-8.0) Ur Specific [place] 1.010 (1.001-1.035) Urine Protein Negative (Negative) Urine Glucose (UA) Negative (Negative) Urine Ketones Negative (Negative) Urine Blood Small H (Negative) Urine Nitrite Positive (Negative) Urine Bilirubin Negative (Negative) Urine Urobilinogen <2.0 (<2.0) mg/dL Ur Leukocyte Esterase Large H (Negative) Urine RBC 5 (0-5) /hpf Urine WBC 102 H (0-5) /hpf Amorphous Sediment Rare H (None) /hpf Urine Bacteria Moderate H (None) /hpf Disposition <Naveed Chicas - Last Filed: 12/13/19 15:10> Is patient prescribed a controlled substance at d/c from ED?: No Time of Disposition: 15:03 <Andre Estrella - Last Filed: 12/13/19 20:32> Clinical Impression: Urinary obstruction, Urinary tract infection Disposition: HOME SELF-CARE Condition: Stable Instructions (If sedation given, give patient instructions): Leos Catheter Placement and Care (ED) Additional Instructions: Follow with the urologist. Return to emergency department if symptoms worsen. Take prescribed medication as directed. Prescriptions: Sulfamethox-Tmp 800-160Mg [Bactrim Ds] 1 each PO Q12HR #20 tab Referrals: Trevon Morin MD [Primary Care Provider] - 1-2 days
[2019-12-13] MEDS ORDERED: cefTRIAXone 1,000 MG VIAL (IM USE) IM STA (15:09)
== END 2019-12-13 15:38 | disposition home or self-care (01) ==
LOC: EC 13:26
DX: N13.9 Obstructive and reflux uropathy, unspecified (principal); N39.0 Urinary tract infection, site not specified; I10 Essential (primary) hypertension; F80.9 Developmental disorder of speech and language, unspecified; I25.10 Atherosclerotic heart disease of native coronary artery without angina pectoris; I25.2 Old myocardial infarction; Z79.899 Other long term (current) drug therapy; Z87.891 Personal history of nicotine dependence; Z95.5 Presence of coronary angioplasty implant and graft; Z87.01 Personal history of pneumonia (recurrent); Z80.3 Family history of malignant neoplasm of breast; Z86.73 Personal history of transient ischemic attack (TIA), and cerebral infarction without residual deficits; Z90.89 Acquired absence of other organs
CPT/HCPCS: 81001; 87086; 99284; 51702; 96372; J0696; 87077; 87186

== ENCOUNTER 2020-02-27 08:04 | Day surgery (SDC) | payer MEDICARE, OTHER ==
[2020-02-24 10:00] VITALS: BMI 18.8
[~2020-02-27 08:04] MED LIST: ACETAMINOPHEN TAB 500 MG TAB PO ONE; DEXAMETHASONE SOD PHOSPHATE 10 MG/ML 1 ML VIAL IV ONE; HEPARIN SODIUM,PORCINE 5,000 UNIT/ML 1 ML VIAL SQ ONE; HYDROmorphone 0.5 MG/0.5 ML SYRINGE IVP PRN; LACTATED RINGERS 1,000 ML IV SCH; LIDOCAINE 1% (10MG/ML) FOR IV START INTRADERMA PRN; ONDANSETRON 4 MG/2 ML VIAL IVP ONE; Pre Op ABX Message 1 EACH MISC MISCELLANE ONE; SCOPOLAMINE 1.5MG/72HR PATCH TRANSDERM ONE
[2020-02-27 08:25] VITALS: TEMP 98.9
[2020-02-27] MEDS ORDERED: ACETAMINOPHEN TAB 500 MG TAB ONE (08:36)
[2020-02-27] MEDS ORDERED: HEPARIN SODIUM,PORCINE 5,000 UNIT/ML 1 ML VIAL ONE (08:37)
[2020-02-27] MEDS ORDERED: ONDANSETRON 4 MG/2 ML VIAL ONE (08:37)
--- NOTE | 2020-02-27 09:43 | P.GSHP ---
History of Present Illness H&P Date: 02/27/20 Chief Complaint: Sebaceous cyst right posterior scalp This a 64-year-old male presents today for excision of sebaceous cyst right posterior scalp. Patient developed a 5 cm sebaceous cyst on the right posterior scalp Past Medical History Past Medical History: COPD, CVA/TIA, Hypertension, Liver Disease, Myocardial Infarction ([place]), Pneumonia, Prostate Disorder Additional Past Medical History / Comment(s): uses oxygen @2l @[facility], cardiac catheterization 2010 revealing right dominant system with a 50% circumflex stenosis, 50% RCA stenosis, minimal disease in the left main and LAD. Echocardiogram has shown a preserved LV function from 2016 and the patient has a ejection fraction of 55-60%., hydrocele, childhood testicular injury, current caregiver says he's had no heart problems since hes lived there which has been 6-7 yrs., she knows of no liver issues Last Myocardial Infarction Date:: UNK History of Any Multi-Drug Resistant Organisms: None Reported Past Surgical History: Adenoidectomy, Heart Catheterization, Hernia Repair, Orthopedic Surgery, Tonsillectomy Additional Past Surgical History / Comment(s): RT INGUINAL HERNIA, ORIF of a left clavicular fracture Past Anesthesia/Blood Transfusion Reactions: No Reported Reaction Smoking Status: Former smoker - Past Family History Father Family Medical History: Unable to Obtain Additional Family Medical History / Comment(s): had heart issuse Mother Family Medical History: Cancer Additional Family Medical History / Comment(s): breast CA Medications and Allergies Home Medications Medication Instructions Recorded Confirmed Type Budesonide-Formot 160-4.5 Mcg 2 puff INHALATION BID #1 inhaler 02/03/17 02/27/20 Rx [Symbicort 160-4.5 Mcg Inhaler] Ipratropium-Albuterol Nebulize 3 ml INHALATION QID #120 neb 02/03/17 02/27/20 Rx [Duoneb 0.5 mg-3 mg/3 ml Soln] Aspirin 81 mg PO DAILY 02/24/20 02/24/20 History Calcium Carbonate [Calcium] 600 mg PO DAILY 02/24/20 02/27/20 History Cholecalciferol [Vitamin D3] 400 unit PO DAILY@1200 02/24/20 02/24/20 History Finasteride [Proscar] 5 mg PO DAILY 02/24/20 02/27/20 History Losartan [Cozaar] 50 mg PO DAILY 02/24/20 02/27/20 History Tamsulosin HCl [Flomax] 0.4 mg PO BID 02/24/20 02/27/20 History Allergies Allergy/AdvReac Type Severity Reaction Status Date / Time No Known Allergies Allergy Verified 02/24/20 09:04 Surgical - Exam Vital Signs Temp Pulse Resp BP Pulse Ox 98.9 F 107 H 16 178/83 93 L 02/27/20 08:20 02/27/20 08:20 02/27/20 08:20 02/27/20 08:20 02/27/20 08:20 - General well developed, well nourished, no distress - Eyes PERRL - ENT normal pinna - Neck no masses - Respiratory normal expansion - Cardiovascular Rhythm: regular - Abdomen Abdomen: soft, non tender - Integumentary 5 cm sebaceous cyst right posterior scalp Assessment and Plan Assessment: Sebaceous cyst right posterior scalp. We'll perform excision.
[2020-02-27] MEDS ORDERED: KETAMINE 10 MG/ML 20 ML VIAL ONE (09:50)
[2020-02-27] MEDS ORDERED: MIDAZOLAM 2 MG/2 ML VIAL ONE (09:50)
[2020-02-27] MEDS ORDERED: PROPOFOL 10 MG/ML 20 ML VIAL IV ONE (09:50)
[2020-02-27] MEDS ORDERED: fentaNYL (PF) 50 MCG/ML 2 ML AMP ONE (09:50)
[2020-02-27] MEDS ORDERED: GLYCOPYRROLATE 0.2 MG/ML 2 ML VIAL ONE (09:50)
[2020-02-27] MEDS ORDERED: SODIUM CHLORIDE 0.9% 50 ML with ceFAZolin 2,000 MG IV ONE ×2 (10:02)
[2020-02-27] MEDS ORDERED: LIDOCAINE 1%-EPI 1:100,000 20 ML VIAL SQ ONE (10:14)
--- NOTE | 2020-02-27 10:30 | P.OP ---
Date of Procedure: 02/27/20 Preoperative Diagnosis: Sebaceous cyst scalp Postoperative Diagnosis: Sebaceous cyst scalp Procedure(s) Performed: Excision of sebaceous cyst right posterior scalp Anesthesia: MAC Surgeon: Arvind Machuca Estimated Blood Loss (ml): 5 Pathology: other (Sebaceous cyst) Condition: stable Disposition: PACU Description of Procedure: The patient's placed on the operative table in the supine position. His head was prepped and draped usual sterile fashion. The sebaceous cyst was ane sthetized 1% local Xylocaine. Using a 15 blade the sebaceous cyst was incised and using sharp and blunt dissection with cautery the sebaceous cyst was excised and sent to pathology. The sebaceous cyst measured prostate 5 cm diameter. The skin was closed interrupted 3-0 Monocryl suture. Dermabond was applied. Patient top she will sent to recovery room stable condition
[2020-02-27 11:02] VITALS: RESP 18
[2020-02-27 12:01] VITALS: BP 147/87; PULSE 72
== END 2020-02-27 12:06 | disposition home or self-care (01) ==
LOC: OR 08:04
PROVIDERS: ATTEND Surgery
DX: L72.0 Epidermal cyst (principal); I25.10 Atherosclerotic heart disease of native coronary artery without angina pectoris; I25.2 Old myocardial infarction; I10 Essential (primary) hypertension; J44.9 Chronic obstructive pulmonary disease, unspecified; Z87.891 Personal history of nicotine dependence; Z86.73 Personal history of transient ischemic attack (TIA), and cerebral infarction without residual deficits; Z79.82 Long term (current) use of aspirin; Z79.51 Long term (current) use of inhaled steroids; Z79.899 Other long term (current) drug therapy; Z99.81 Dependence on supplemental oxygen; Z87.01 Personal history of pneumonia (recurrent); Z90.49 Acquired absence of other specified parts of digestive tract; Z90.89 Acquired absence of other organs; Z98.890 Other specified postprocedural states; Z82.49 Family history of ischemic heart disease and other diseases of the circulatory system; Z80.3 Family history of malignant neoplasm of breast
CPT/HCPCS: 88304; 11426; J2250; J1644; J1100; J2405; J0690; J3010; J2704

== ENCOUNTER 2021-01-08 11:30 | Emergency (ER) | payer MEDICARE, OTHER ==
[2021-01-08 11:39] VITALS: RESP 18
--- NOTE | 2021-01-08 12:42 | ED ---
General Adult HPI - General Chief complaint: Urogenital Stated complaint: Male Time Seen by Provider: 01/08/21 12:27 Source: patient, Caregiver Mode of arrival: wheelchair Limitations: no limitations - History of Present Illness Initial comments: Dictation was produced using [employer] dictation software. please excuse any grammatical, word or spelling errors. Chief Complaint: 65 year-old presents with scrotal swelling History of Present Illness: This 65-year-old male who presents today emergency department today for scrotal swelling. He has had scrotal swelling for several months now. Has not seen a urologist for this. He decided to come to the ER today Is he feels as though he needs surgery for this. Patient has any urinary symptoms. Denies any abdominal pain. No constitutional symptoms. The ROS documented in this emergency department record has been reviewed and confirmed by me. Those systems with pertinent positive or negative responses have been documented in the HPI. All other systems are other negative and/or noncontributory. PHYSICAL EXAM: General Impression: Alert and oriented x3, not in acute distress HEENT: Normocephalic atraumatic, extra-ocular movements intact, pupils equal and reactive to light bilaterally, mucous membranes moist. Cardiovascular: Heart regular rate and rhythm Chest: Able to complete full sentences, no retractions, no tachypnea Abdomen: abdomen soft, non-tender, non-distended, no organomegaly Musculoskeletal: Pulses present and equal in all extremities, no peripheral ed betsy Motor: no focal deficits noted : Swollen bilateral scrotums without any overlying erythema or induration Neurological: CN II-XII grossly intact, no focal motor or sensory deficits noted Skin: Intact with no visualized rashes Psych: Normal affect and mood ED course: 65-year-old male with scrotal swelling times several months. Vital signs upon arrival are within acceptable limits. Urinalysis shows 30 white blood cells. Scrotal ultrasound shows no evidence of orchitis epididymitis or testicular torsion. Left epididymis is not visualized. Large complex hydrocele with internal debris. Left epididymal head cyst. Patient does not have any testicular pain. However symptoms could be secondary to epididymal orchitis. Patient started on appropriate antibiotics. Is given outpatient referral to urology. - Related Data Home Medications Medication Instructions Recorded Confirmed Aspirin 81 mg PO DAILY 02/24/20 02/24/20 Calcium Carbonate [Calcium] 600 mg PO DAILY 02/24/20 02/27/20 Cholecalciferol [Vitamin D3] 400 unit PO DAILY@1200 02/24/20 02/24/20 Finasteride [Proscar] 5 mg PO DAILY 02/24/20 02/27/20 Losartan [Cozaar] 50 mg PO DAILY 02/24/20 02/27/20 Tamsulosin HCl [Flomax] 0.4 mg PO BID 02/24/20 02/27/20 Previous Rx's Medication Instructions Recorded Budesonide-Formot 160-4.5 Mcg 2 puff INHALATION BID #1 inhaler 02/03/17 [Symbicort 160-4.5 Mcg Inhaler] Ipratropium-Albuterol Nebulize 3 ml INHALATION QID #120 neb 02/03/17 [Duoneb 0.5 mg-3 mg/3 ml Soln] Levofloxacin [Levaquin] 750 mg PO DAILY 10 Days #1 tab 01/08/21 Allergies Allergy/AdvReac Type Severity Reaction Status Date / Time No Known Allergies Allergy Verified 01/08/21 11:34 Review of Systems ROS Statement: Those systems with pertinent positive or pertinent negative responses have been documented in the HPI. ROS Other: All systems not noted in ROS Statement are negative. Past Medical History Past Medical History: COPD, CVA/TIA, Hypertension, Liver Disease, Myocardial Infarction ([place]), Pneumonia, Prostate Disorder Additional Past Medical History / Comment(s): uses oxygen @2l @[facility], cardiac catheterization 2010 revealing right dominant system with a 50% circumflex stenosis, 50% RCA stenosis, minimal disease in the left main and LAD. Echocardiogram has shown a preserved LV function from 2016 and the patient has a ejection fraction of 55-60%., hydrocele, childhood testicular injury, current caregiver says he's had no heart problems since hes lived there which has been 6-7 yrs., she knows of no liver issues Last Myocardial Infarction Date:: UNK History of Any Multi-Drug Resistant Organisms: None Reported Past Surgical History: Adenoidectomy, Heart Catheterization, Hernia Repair, Orthopedic Surgery, Tonsillectomy Additional Past Surgical History / Comment(s): RT INGUINAL HERNIA, ORIF of a left clavicular fracture Past Anesthesia/Blood Transfusion Reactions: No Reported Reaction Past Psychological History: Anxiety, Depression Smoking Status: Former smoker Past Alcohol Use History: None Reported Past Drug Use History: None Reported - Past Family History Father Family Medical History: Unable to Obtain Additional Family Medical History / Comment(s): had heart issuse Mother Family Medical History: Cancer Additional Family Medical History / Comment(s): breast CA General Exam Limitations: no limitations Course Vital Signs 01/08/21 01/08/21 11:35 13:55 Temperature 97.9 F 97.6 F Pulse Rate 72 63 Respiratory 18 18 Rate Blood Pressure 137/67 128/75 O2 Sat by Pulse 94 L 97 Oximetry Medical Decision Making - Lab Data Lab Results 01/08/21 Range/Units 12:50 Urine Color Yellow Urine Appearance Clear (Clear) Urine pH 7.0 (5.0-8.0) Ur Specific [place] 1.022 (1.001-1.035) Urine Protein Negative (Negative) Urine Glucose (UA) Negative (Negative) Urine Ketones Negative (Negative) Urine Blood Negative (Negative) Urine Nitrite Negative (Negative) Urine Bilirubin Negative (Negative) Urine Urobilinogen <2.0 (<2.0) mg/dL Ur Leukocyte Esterase Moderate H (Negative) Urine RBC 1 (0-5) /hpf Urine WBC 30 H (0-5) /hpf Disposition Clinical Impression: Scrotal swelling Disposition: HOME SELF-CARE Condition: Fair Instructions (If sedation given, give patient instructions): Urinary Tract Infection in Men (ED), Hydrocele (ED) Prescriptions: Levofloxacin [Levaquin] 750 mg PO DAILY 10 Days #1 tab Is patient prescribed a controlled substance at d/c from ED?: No Referrals: Michele Turpin MD [STAFF PHYSICIAN] - 1-2 days
[2021-01-08 13:11] LABS: Appearance,Urine Clear (Clear); Bilirubin,Urine Negative (Negative); Blood,Urine Negative (Negative); Color,Urine Yellow; Glucose,Urine (UA) Negative (Negative); Ketones,Urine Negative (Negative); Leukocyte Esterase,Urine Moderate (Negative); Nitrite,Urine Negative (Negative); Protein,Urine Negative (Negative); RBC,Urine 1 /hpf (0-5); Specific Gravity,Urine 1.022 (1.001-1.035); Urobilinogen,Urine <2.0 mg/dL (<2.0); WBC,Urine 30 /hpf (0-5)
--- NOTE | 2021-01-08 13:52 | US ---
EXAMINATION TYPE: US scrotum with doppler. Grayscale and color Doppler Duplex imaging performed of marina de santiago scrotum. DATE OF EXAM: 01/08/2021 COMPARISON: 02/16/2015 CLINICAL HISTORY: Scrotal swelling. Left teste appears enlarged in size x many years, no pain EXAM MEASUREMENTS: TESTICLES: Right Testicle: 5.4 x 2.9 x 4.3 cm ectasia of the rete testis. Left Testicle: 4.0 x 5.2 x 2.5 cm EPIDIDYMIS HEAD: Right Epididymis: 1.5 x 1.4 x 1.1 cm Left Epididymis: Not visualized Doppler performed to assess for testicular vascularity; good bilateral color flow and waveforms are s een. There is no evidence of testicular torsion. Presence of hydroceles: Left Presence of varicoceles: no Right epididymal head cyst or spermatocele = 1.2 x 1.3 x 0.8 cm. Left large complex hydrocele with internal debris= 8.1 x 7.2 x 5.5 cm, septation was seen. Left epid idymis not visualized. IMPRESSION: 1. No evidence of orchitis, epididymitis, or testicular torsion. The left epididymis is not visualize d. 2. Large complex left hydrocele with internal debris measuring 8.1 cm with prominent septation. 3. Right epididymal head cyst or spur hematocele measuring 1.3 cm.
[2021-01-08] MEDS ORDERED: cefTRIAXone IN SWFI 1,000 MG/10 ML SYRINGE IVP STA (14:11)
[2021-01-08] MEDS ORDERED: cefTRIAXone 250 MG VIAL IM STA (14:14)
[2021-01-08 14:56] VITALS: BP 167/81; PULSE 70; TEMP 98
== END 2021-01-08 15:03 | disposition home or self-care (01) ==
LOC: EC 11:30
DX: N50.89 Other specified disorders of the male genital organs (principal); I10 Essential (primary) hypertension; J44.9 Chronic obstructive pulmonary disease, unspecified; I25.2 Old myocardial infarction; I25.10 Atherosclerotic heart disease of native coronary artery without angina pectoris; F32.9 Major depressive disorder, single episode, unspecified; F41.9 Anxiety disorder, unspecified; Z86.73 Personal history of transient ischemic attack (TIA), and cerebral infarction without residual deficits; Z87.891 Personal history of nicotine dependence; Z79.51 Long term (current) use of inhaled steroids; Z79.82 Long term (current) use of aspirin
CPT/HCPCS: 81001; 87086; 93975; 76870; 99284; 96372; J0696

== ENCOUNTER 2022-07-11 09:33 | Emergency (ER) | payer MEDICARE, OTHER ==
--- NOTE | 2022-07-11 10:28 | XR ---
EXAMINATION TYPE: XR chest 2V DATE OF EXAM: 07/11/2022 10:19 AM COMPARISON: Chest radiographs from 01/29/2017 TECHNIQUE: XR chest 2V Frontal and lateral views of the chest. CLINICAL INDICATION:Male, 67 years old with history of Cough; FINDINGS: Lungs/Pleura: There is flattening of the diaphragm with increased lucency of the lungs. No evidence o f pneumothorax or pleural effusion. Right mid to lower lung patchy infiltrates. Chronic senescent par enchymal changes. Biapical pleural-parenchymal scarring. Pulmonary vascularity: Unremarkable. Heart/mediastinum: Cardiomediastinal silhouette is unremarkable. Atherosclerotic calcifications are seen in the aorta. Musculoskeletal: No acute osseous pathology. Surgical clips in the left shoulder region. IMPRESSION: 1. Right mid to lower lung patchy airspace infiltrates. 2. COPD changes.
--- NOTE | 2022-07-11 10:38 | ED ---
General Adult HPI - General Source: patient Mode of arrival: ambulatory Limitations: no limitations <Gennaro Manjarrez - Last Filed: 07/11/22 10:37> - General Source: RN notes reviewed <Rehan Daily - Last Filed: 07/23/22 06:05> - General Chief complaint: Shortness of Breath Stated complaint: sob Time Seen by Provider: 07/11/22 10:00 - History of Present Illness Initial comments: Patient is a 67-year-old male with history of COPD presenting with chief complaint of shortness of breath. Patient states that shortness of breath has been worsening over the last few days. He admits to productive cough. He also admits to wheezing. Patient wears oxygen at home. No chest pain. No abdominal pain, nausea, vomiting, fever, chills, sore throat, difficulty swallowing. (Gennaro Manjarrez) - Related Data Home Medications Medication Instructions Recorded Confirmed Calcium Carbonate [Calcium] 600 mg PO DAILY 02/24/20 01/08/21 Finasteride [Proscar] 5 mg PO DAILY 02/24/20 01/08/21 Losartan [Cozaar] 50 mg PO DAILY 02/24/20 01/08/21 Tamsulosin HCl [Flomax] 0.4 mg PO DAILY 02/24/20 01/08/21 Aspirin EC [Ecotrin Low Dose] 81 mg PO DAILY 01/08/21 01/08/21 Budesonide [Pulmicort] 0.5 mg INHALATION RT-BID 01/08/21 01/08/21 Cholecalciferol [Vitamin D3 (25 50 mcg PO DAILY 01/08/21 01/08/21 Mcg = 1000 Iu)] Ipratropium-Albuterol Nebulize 3 ml INHALATION RT-QID PRN 01/08/21 01/08/21 [Duoneb 0.5 mg-3 mg/3 ml Soln] Previous Rx's Medication Instructions Recorded Levofloxacin [Levaquin] 750 mg PO DAILY 10 Days #1 tab 01/08/21 Azithromycin [Zithromax Z Pack] 0 tab PO DIRECTED #6 tab 07/11/22 predniSONE 50 mg PO DAILY #5 tab 07/11/22 Allergies Allergy/AdvReac Type Severity Reaction Status Date / Time No Known Allergies Allergy Verified 07/11/22 10:01 Review of Systems ROS Other: All systems not noted in ROS Statement are negative. <Gennaro Manjarrez - Last Filed: 07/11/22 10:37> ROS Other: All systems not noted in ROS Statement are negative. <Rehan Daily - Last Filed: 07/23/22 06:05> ROS Statement: Those systems with pertinent positive or pertinent negative responses have been documented in the HPI. Past Medical History Past Medical History: COPD, CVA/TIA, Hypertension, Liver Disease, Myocardial Infarction ([place]), Pneumonia, Prostate Disorder Additional Past Medical History / Comment(s): uses oxygen @2l @[facility], cardiac catheterization 2010 revealing right dominant system with a 50% circumflex stenosis, 50% RCA stenosis, minimal disease in the left main and LAD. Echocardiogram has shown a preserved LV function from 2016 and the patient has a ejection fraction of 55-60%., hydrocele, childhood testicular injury, current caregiver says he's had no heart problems since hes lived there which has been 6-7 yrs., she knows of no liver issues Last Myocardial Infarction Date:: UNK History of Any Multi-Drug Resistant Organisms: None Reported Past Surgical History: Adenoidectomy, Heart Catheterization, Hernia Repair, Orthopedic Surgery, Tonsillectomy Additional Past Surgical History / Comment(s): RT INGUINAL HERNIA, ORIF of a left clavicular fracture Past Anesthesia/Blood Transfusion Reactions: No Reported Reaction Past Psychological History: Anxiety, Depression Smoking Status: Former smoker Past Alcohol Use History: None Reported Past Drug Use History: None Reported - Past Family History Father Family Medical History: Unable to Obtain Additional Family Medical History / Comment(s): had heart issuse Mother Family Medical History: Cancer Additional Family Medical History / Comment(s): breast CA <Gennaro Manjarrez - Last Filed: 07/11/22 10:37> General Exam Limitations: no limitations <Gennaro Manjarrez - Last Filed: 07/11/22 10:37> Course Vital Signs 07/11/22 07/11/22 07/11/22 09:59 13:22 13:27 Temperature 98.1 F 97.2 F L Pulse Rate 85 72 82 Respiratory 22 22 Rate Blood Pressure 133/64 155/92 O2 Sat by Pulse 94 L 94 L Oximetry 07/11/22 07/11/22 07/11/22 13:41 14:29 15:08 Temperature 97.1 F L Pulse Rate 68 82 80 Respiratory 20 18 Rate Blood Pressure 118/75 132/78 O2 Sat by Pulse 94 L 100 Oximetry Medical Decision Making <Rehan Daily - Last Filed: 07/23/22 06:05> - Medical Decision Making Was pt. sent in by a medical professional or institution (CHRISTOPHER Portillo, RESEARCH HYDRAULIC ENGINEER, urgent care, hospital, or intermediate...) When possible be specific @ -No Did you speak to anyone other than the patient for history (EMS, parent, family, police, friend...)? What history was obtained from this source @ -No Did you review nursing and triage notes (agree or disagree)? Why? @ -I reviewed and agree with nursing and triage notes Were old charts reviewed (outside hosp., previous admission, EMS record, old EKG, old radiological studies, urgent care reports/EKG's, intermediate records)? Report findings @ -No old charts were reviewed Differential Diagnosis (chest pain, altered mental status, abdominal pain women, abdominal pain men, vaginal bleeding, weakness, fever, dyspnea, syncope, headache, dizziness, GI bleed, back pain, seizure, CVA, palpatations, mental health)? @ -not applicable EKG interpreted by me (3pts min.). @ -As above X-rays interpreted by me (1pt min.). @ -Chest x-ray shows evidence of pneumonia. CT interpreted by me (1pt min.). @ -None done U/S interpreted by me (1pt. min.). @ -None done What testing was considered but not performed or refused? (CT, X-rays, U/S, labs)? Why? @ -None What meds were considered but not given or refused? Why? @ -None Did you discuss the management of the patient with other professionals (liza bhatia i.e. CHRISTOPHER Portillo, RESEARCH HYDRAULIC ENGINEER, lab, RT, psych nurse, social services aide, plastic fixture builder, teacher, contact officer, leather case finisher)? Give summary @ -No Was smoking cessation discussed for >3mins.? @ -No Was critical care preformed (if so, how long)? @ -No Were there social determinants of health that impacted care today? How? (Homelessness, low income, unemployed, alcoholism, drug addiction, transportation, low edu. Level, literacy, decrease access to med. care, alf, rehab)? @ -No Was there de-escalation of care discussed even if they declined (Discuss DNR or withdrawal of care, Hospice)? DNR status @ -No What co-morbidities impacted this encounter? (DM, HTN, Smoking, COPD, CAD, Cancer, CVA, ARF, Chemo, Hep., AIDS, mental health diagnosis, sleep apnea, morbid obesity)? @ -COPD Was patient admitted / discharged? Hospital course, mention meds given and route, prescriptions, significant lab abnormalities, going to OR and other pertinent info. @ -Discharged - patient chest x-ray shows evidence of pneumonia. Patient does not have significant hypoxia. Patient was offered admission given history of COPD was given breathing treatments it feels improved will try oral antibiotics and steroids. Return parameters were discussed. Undiagnosed new problem with uncertain prognosis? @ -No Drug Therapy requiring intensive monitoring for toxicity (Heparin, Nitro, Insulin, Cardizem)? @ -No Were any procedures done? @ -No Diagnosis/symptom? @ -Pneumonia Acute, or Chronic, or Acute on Chronic? @ -Acute Uncomplicated (without systemic symptoms) or Complicated (systemic symptoms)? @ -Uncomplicated Side effects of treatment? @ -No Exacerbation, Progression, or Severe Exacerbation? @ -No Poses a threat to life or bodily function? How? (Chest pain, [place], [place], pneumonia, PE, COPD, DKA, ARF, appy, cholecystitis, CVA, Diverticulitis, Homicidal, Bear icidal, threat to staff... and all critical care pts) @ -No (Rehan Daliy) - Lab Data Lab Results 07/11/22 Range/Units 10:03 Influenza Type A (PCR) Not Detected (Not Detectd) Influenza Type B (PCR) Not Detected (Not Detectd) RSV (PCR) Not Detected (Not Detectd) SARS-CoV-2 (PCR) Not Detected (Not Detectd) Disposition <Gennaro Manjarrez - Last Filed: 07/11/22 10:37> Is patient prescribed a controlled substance at d/c from ED?: No Time of Disposition: 14:01 <Rehan Daily - Last Filed: 07/23/22 06:05> Clinical Impression: Pneumonia Disposition: HOME SELF-CARE Condition: Stable Instructions (If sedation given, give patient instructions): Bacterial Pneumonia (ED) Additional Instructions: Please return to the Emergency Department if symptoms worsen or any other concerns. Prescriptions: predniSONE 50 mg PO DAILY #5 tab Azithromycin [Zithromax Z Pack] 0 tab PO DIRECTED #6 tab Referrals: Montrell Johnson MD [Primary Care Provider] - 1-2 days
[2022-07-11] MEDS ORDERED: IPRATROPIUM-ALBUTEROL 3 ML NEB INHALATION STA (12:31)
[2022-07-11 14:32] VITALS: TEMP 97.1
[2022-07-11] MEDS ORDERED: cefTRIAXone 1,000 MG VIAL (IM USE) IM STA (14:36)
[2022-07-11] MEDS ORDERED: methylPREDNISolone SOD SUCCI 125 MG/2 ML VIAL IM ONE (14:36)
[2022-07-11 15:09] VITALS: BP 132/78; PULSE 80; RESP 18
== END 2022-07-11 15:09 | disposition home or self-care (01) ==
LOC: EC 09:33
DX: J18.9 Pneumonia, unspecified organism (principal); J44.9 Chronic obstructive pulmonary disease, unspecified; I10 Essential (primary) hypertension; I21.9 Acute myocardial infarction, unspecified; F41.9 Anxiety disorder, unspecified; F32.A Depression, unspecified; Z87.891 Personal history of nicotine dependence; Z79.82 Long term (current) use of aspirin; Z79.899 Other long term (current) drug therapy; Z20.822 Contact with and (suspected) exposure to COVID-19
CPT/HCPCS: 94640; 87636; 71046; 99285; 96372 ×2; J2930; J0696